=== PATIENT | male | born 1955 | race Caucasian/White ===

== ENCOUNTER 2016-05-09 13:21 | Observation (INO) | payer OTHER ==
[~2016-05-09] VITALS: Ht 172.7 cm; Wt 77.4 kg
[~2016-05-09 13:21] MED LIST: ASPI81TA28 PO
[2016-05-09] MEDS ORDERED: GLC500 PO (14:06)
[2016-05-09] MEDS ORDERED: LISI-461 PO (14:06)
[2016-05-09] MEDS ORDERED: ATOR-26 PO (14:06)
[2016-05-09] MEDS ORDERED: GLIM1TAB2 PO (14:06)
[2016-05-09] MEDS ORDERED: SODIUM CHLORIDE 0.9% 1000ML 1,000 ML IV STA (14:40)
[2016-05-09 14:53] LABS: BASO % 0.1 %; BASO ABS # 0.01 K/uL (0-0.2); COMPLETE YES; EOS % 0.4 %; HEMATOCRIT 43.2 % (42-52); IG% 0.4 %; LYMPH % 25.1 %; MEAN CELL VOLUME 92.9 fL (80-100); MEAN CORPUSCULAR HGB CONC 34.5 g/dl (32-36); MONO % 7.7 %; NEUT % 66.3 %; PLATELET COUNT 148 K/uL (130-400); RED BLOOD COUNT 4.65 M/uL (4.7-6.1); WHITE BLOOD COUNT 7.58 K/uL (4.8-10.8)
--- NOTE | 2016-05-09 14:58 | DIAGNOSTIC IMAGING REPORT ---
CHEST ONE VIEW PORTABLE HISTORY: syncope COMPARISON: None. FINDINGS: The lungs are clear. Cardiac silhouette is normal in size. No pleural effusions. No pneumothorax. IMPRESSION: No acute process. Electronically signed by: Shawn Howard M.D. 05/09/2016 2:57 PM Dictated Date/Time: 05/09/2016 2:56 PM
[2016-05-09 15:00] LABS: ALT/SGPT 19 U/L (12-78); BLOOD UREA NITROGEN 24 mg/dl (7-18); BUN/CREATININE RATIO 10.9 (10-20); CALCIUM 9.1 mg/dl (8.5-10.1); CARBON DIOXIDE 23 mmol/L (21-32); CHLORIDE 105 mmol/L (98-107); GLUCOSE 289 mg/dl (70-99); SODIUM 139 mmol/L (136-145)
[2016-05-09 15:11] LABS: ALB/GLOB RATIO 1.2 (0.9-2); ALKALINE PHOSPHATASE 85 U/L (45-117); AST/SGOT 10 U/L (15-37); CKMB/CK RATIO 1.4 (0-3.0)
--- NOTE | 2016-05-09 15:15 | DIAGNOSTIC IMAGING REPORT ---
CT OF THE HEAD WITHOUT CONTRAST CLINICAL HISTORY: Syncope. Fall. COMPARISON STUDY: No previous studies for comparison. CT DOSE: 638.56 mGycm TECHNIQUE: Helical axial images of the head were obtained without IV contrast. Automated exposure control was utilized for the study. FINDINGS: No acute intracranial hemorrhage, midline shift or mass effect is present. Ventricular system is normal. The basilar cisterns are patent. There are no extra-axial collections. Miller-white differentiation is maintained. There are no findings to suggest acute dural sinus thrombosis or acute territorial infarct. Mild periventricular white matter hypodensity suggests small vessel disease. There is bilateral basal ganglia calcification. There is no calvarial fracture. Visualized portions of the sinuses and mastoid air cells are clear. IMPRESSION: 1. No acute intracranial findings. 2. No calvarial fracture. Electronically signed by: Chris Saavedra M.D. 05/09/2016 3:14 PM Dictated Date/Time: 05/09/2016 3:11 PM
[2016-05-09] MEDS ORDERED: ALUMINUM/MAGNESIUM/SIMETH (MAALOX MAX) 30 ML UDC PO PRN (17:15)
[2016-05-09] MEDS ORDERED: ACETAMINOPHEN 325 MG TAB PO PRN (17:15)
[2016-05-09] MEDS ORDERED: POLYETHYLENE (MIRALAX) 17 GM PACK PO PRN (17:15)
[2016-05-09] MEDS ORDERED: MAGNESIUM HYDROXIDE SUSP 30 ML UDC PO PRN (17:15)
[2016-05-09] MEDS ORDERED: ONDANSETRON INJ 2 MG/ML 2 ML VIAL IV PRN (17:15)
--- NOTE | 2016-05-09 17:19 | History and Physical ---
History & Physical Date & Time of Service: May 09, 2016 at 17:14 Chief Complaint: Passed Out, Dizzy And Fell Backward Primary Care Physician: Guanakito Garcia M.D. History of Present Illness Source: patient, spouse Mr. Batista is a 60 y/o male with PMHx of HTN, T2DM, and CAD S/P Catheterization without Stent Placement who presents to the ED due to a syncope episode and collapse. Patient has had syncopal episodes in the past that have been worked up with unremarkable findings. Today he was cleaning at at [employer] when he was sweeping the floor and felt hot and was diaphoretic. This is the last thing he recalls and his her a loud crash and found him. He fell backwards into the wall and was staring off but was alert. recalls that it took roughly 10 minutes for him to return to his baseline mentation and was complaining of feeling hot and lightheaded. denies tonic-clonic movements, loss of bowel/ bladder function, or biting of the tongue. She did noticed speech was rapid and rambling but has since returned to normal. He associated blurring vision and difficulty focusing prior to the event. He did not eat breakfast this morning, however did take his Glimepiride. He does not regularly check his sugars and is unable to give an average of how his sugars run in the AM. Associated poor sleep over the past several months and stress. States his mind races and this makes it difficult to sleep. He has had a holter monitor placed after previous admission that did not reveal abnormalities. He was seen by Dr. Villa in [place] and had a catheterization that revealed a 100% blockage and a 98% blockage of unknown arteries per patient report. No stent was placed and he was told he has a collateral vessel and that his vessels were too small for stenting. He was started on medical management for those findings. He denies fever/chills, CP, palpitations, SOB, abdominal pain, N/V, dysuria, constipation/ diarrhea. Past Medical/Surgical History Medical Problems: (1) Diab Oma Wo Compl, Type Ii Or Unspec Type, Not Uncntrld Status: Chronic (2) Hyperlipidemia Nec/Nos Status: Chronic (3) Hypertension Nos Status: Chronic (4) Syncope Status: Resolved Family History CABG FATHER Hypotension SISTER Social History Smoking Status: Former Smoker Smokeless Tobacco Use: Yes Alcohol Use: none Drug Use: none Marital Status: Housing status: lives with significant other Allergies Coded Allergies: Flu Virus Vaccine (Verified Adverse Reaction, Severe, Severe vomiting/ dehydration, 05/09/16) Pt reports severe vomiting w/ dehydration to the point of being hospitalized after last flu vaccine. Home Medications Scheduled Aspirin (Aspirin Ec), 1 TAB PO DAILY Atorvastatin (Lipitor), 80 MG PO DAILY Glimepiride (Glimepiride), 1 MG PO DAILY Insulin Aspart (Novolog Flexpen), 0 UNITS SC ACHS Lisinopril (Lisinopril), 10 MG PO DAILY Metformin HCl (Metformin HCl), 500 MG PO QDD Review of Systems Constitutional: + fatigue, + sweats Eyes: + problem reported (Denies headache/pain), + worsening of vision ( blurred vision (resolved)) ENT: No nasal symptoms, No sore throat, No trouble swallowing Respiratory: No cough, No shortness of breath Cardiovascular: No chest pain, No palpitations Abdomen: No constipation, No diarrhea, No nausea, No pain, No vomiting Musculoskeletal: No calf pain, No swelling Genitourinary - Male: No dysuria Neurologic: + vertigo Psychiatric: + insomnia Hematologic / Lymphatic: No abnormal bleeding/bruising, No clotting problems Integumentary: No rash Physical Exam Vital Signs Date Time Temp Pulse Resp B/P Pulse Ox O2 Delivery O2 Flow Rate FiO2 05/09/16 15:21 110 16 87/71 99 Room Air 05/09/16 15:17 82 16 125/69 99 Room Air 88 106/70 110 87/71 05/09/16 13:46 86 05/09/16 13:23 36.8 99 18 94/65 99 Room Air General Appearance: WD/WN, no apparent distress Head: normocephalic, atraumatic Eyes: PERRL, EOMI, sclerae normal ENT: hearing grossly normal, pharynx normal Neck: supple, no JVD, trachea midline Respiratory/Chest: lungs clear, normal breath sounds, no respiratory distress, no accessory muscle use Cardiovascular: regular rate, rhythm, no gallop, no murmur Abdomen/GI: normal bowel sounds, non tender, soft Back: normal inspection, no CVA tenderness Extremities/Musculoskelatal: no calf tenderness, no pedal edema Neurologic/Psych: no motor/sensory deficits, alert, oriented x 3 Skin: normal color, warm/dry Diagnostics Laboratory Results Results Past 24 Hours Test 05/09/16 13:40 Range/Units White Blood Count 7.58 4.8-10.8 K/uL Red Blood Count 4.65 4.7-6.1 M/uL Hemoglobin 14.9 14.0-18.0 g/dL Hematocrit 43.2 42-52 % Mean Corpuscular Volume 92.9 80-100 fL Mean Corpuscular Hemoglobin 32.0 25-34 pg Mean Corpuscular Hemoglobin Concent 34.5 32-36 g/dl Platelet Count 148 130-400 K/uL Mean Platelet Volume 11.0 7.4-10.4 fL Neutrophils (%) (Auto) 66.3 % Lymphocytes (%) (Auto) 25.1 % Monocytes (%) (Auto) 7.7 % Eosinophils (%) (Auto) 0.4 % Basophils (%) (Auto) 0.1 % Neutrophils # (Auto) 5.03 1.4-6.5 K/uL Lymphocytes # (Auto) 1.90 1.2-3.4 K/uL Monocytes # (Auto) 0.58 0.11-0.59 K/uL Eosinophils # (Auto) 0.03 0-0.5 K/uL Basophils # (Auto) 0.01 0-0.2 K/uL RDW Standard Deviation 43.8 36.4-46.3 fL RDW Coefficient of Variation 12.9 11.5-14.5 % Immature Granulocyte % (Auto) 0.4 % Immature Granulocyte # (Auto) 0.03 0.00-0.02 K/uL Sodium Level 139 136-145 mmol/L Potassium Level 5.0 3.5-5.1 mmol/L Chloride Level 105 98-107 mmol/L Carbon Dioxide Level 23 21-32 mmol/L Anion Gap 11.0 3-11 mmol/L Blood Urea Nitrogen 24 7-18 mg/dl Creatinine 2.20 0.60-1.40 mg/dl Est Creatinine Clear Calc Drug Dose 33.7 ml/min Estimated GFR () 35.9 Estimated GFR (Non- 31.0 BUN/Creatinine Ratio 10.9 10-20 Random Glucose 289 70-99 mg/dl Calcium Level 9.1 8.5-10.1 mg/dl Total Bilirubin 0.5 0.2-1 mg/dl Aspartate Amino Transf (AST/SGOT) 10 15-37 U/L Alanine Aminotransferase (ALT/SGPT) 19 12-78 U/L Alkaline Phosphatase 85 45-117 U/L Total Creatine Kinase 66 39-308 U/L Creatine Kinase MB 0.9 0.5-3.6 ng/ml Creatine Kinase MB Ratio 1.4 0-3.0 Troponin I < 0.015 0-0.045 ng/ml Total Protein 7.2 6.4-8.2 gm/dl Albumin 3.9 3.4-5.0 gm/dl Globulin 3.3 2.5-4.0 gm/dl Albumin/Globulin Ratio 1.2 0.9-2 Thyroid Stimulating Hormone (TSH) 2.820 0.300-4.500 uIu/ml Diagnostic Radiology CT OF THE HEAD WITHOUT CONTRAST CLINICAL HISTORY: Syncope. Fall. COMPARISON STUDY: No previous studies for comparison. CT DOSE: 638.56 mGycm TECHNIQUE: Helical axial images of the head were obtained without IV contrast. Automated exposure control was utilized for the study. FINDINGS: No acute intracranial hemorrhage, midline shift or mass effect is present. Ventricular system is normal. The basilar cisterns are patent. There are no extra-axial collections. Miller-white differentiation is maintained. There are no findings to suggest acute dural sinus thrombosis or acute territorial infarct. Mild periventricular white matter hypodensity suggests small vessel disease. There is bilateral basal ganglia calcification. There is no calvarial fracture. Visualized portions of the sinuses and mastoid air cells are clear. IMPRESSION: 1. No acute intracranial findings. 2. No calvarial fracture. CHEST ONE VIEW PORTABLE HISTORY: syncope COMPARISON: None. FINDINGS: The lungs are clear. Cardiac silhouette is normal in size. No pleural effusions. No pneumothorax. IMPRESSION: No acute process. EKG Normal sinus rhythm Normal ECG No previous ECGs available other (LVH) Impression Assessment and Plan Mr. Batista is a 60 y/o male with PMHx of HTN, T2DM, and CAD S/P Catheterization without Stent Placement who presents to the ED due to a syncope episode and collapse. Likely Vasovagal/Orthostasis vs Dehydration with Hyperglycemia vs Arrhythmia (unlikely) vs Seizure (unlikely) vs CVA/TIA (unlikely) Syncope and Collapse: - Patient presents with glucose of 289 without food intake today and after Glimepiride dosage - Patient also with positive orthostatic readings of 125/69 (82) supine; 106/70 (88) sitting; 87/71 (110) - Imaging and Studies -- Echo (2014) - grade I diastolic dysfunction; EF 65% -- Carotid U/S (2014) - mild stenosis of R external carotid and mild calcified plaque within bilateral carotid bifurcations without hemodynamic instability - Will defer further brain imaging given lack of neuro deficits - consideration if mentation changes or deficits appreciated - Repeat Echo and Carotid U/S - Orthostatic BPs - Serial cardiac enzymes - Hold Lisinopril Acute Kidney Injury: Baseline 1.1? - Creatinine at 2.2 - NSS at 100 mL/hr - Trend BMP for resolution R Shoulder Pain 2/ Fall: - R Shoulder XR - Tylenol PRN T2DM: - Check A1c - Hold Metformin and Glimepiride - SSI with goal 100-150 and correction factor 35 CAD with Significant Unknown Vessel Occlusion: - Lipitor 80 mg daily and ASA 81 mg daily DVT Prophylaxis: - TEDs/SCDs Code Status: - FULL RESUSCITATION Disposition: - Patient lives at home with no needs identified Level of Care Telemetry Resuscitation Status FULL RESUSCITATION VTE Prophylaxis VTE Risk Assessment Done? Y/N: Yes Risk Level: Moderate Given or contraindicated: T.E.D. Stockings, SCD's Social Service Consult None Apply Assessment and Plan Attending Addendum: I have physically seen and examined this patient, have directed their medical care, have supervised the PA's activity, and agree with the H&P as noted above, with the following changes: NONE. The patient is awake, well-developed and adequately nourished, alert and oriented 3, normocephalic and atraumatic, lying in bed and in no acute distress. HEENT--PERRL, EOMI, mucous membranes and oropharynx moist. Neck--supple, no JVD or bruits, thyroid normal, trachea midline, no adenopathy. Heart--normal S1 and S2, no extra beats, no murmurs, rubs or gallops. Lungs--clear bilaterally with good air movement, no respiratory distress, no accessory muscle use. Abdomen--normal bowel sounds and soft, nontender and nondistended, no hernias or masses, no organomegaly. Extremities--no cyanosis, clubbing or edema. There are good distal pulses b/l. Dermatologic--normal skin turgor, normal color, warm and dry, no abnormal lymph nodes, no rash. Neurologic--cranial nerves II through XII grossly intact, motor and sensory examination normal. Rheumatologic--normal range of motion, nontender, muscles and joints. Psychiatric--normal affect. Assessment and Plan: Syncope And Collapse--differential includes cardiac, neurologic, dehydration, hypoglycemia, acidosis secondary to metformin in acute Renal failure. CAD/hypertension--continue aspirin 81 mg by mouth daily, hold lisinopril as noted below. We'll follow serial cardiac enzymes, cardiac rhythm monitoring and order a 2-D echocardiogram with Dopplers. Acute renal insufficiency--creatinine at baseline is 1.1, and laboratories upon entry 2.2. Be placed on normal saline 100 ML's per hour, have his lisinopril held, and recheck a PRP and magnesium levels in the a.m.. Vital signs suggest orthostasis, and follow response to rehydration. Diabetes mellitus--hold metformin due to metabolic acidosis associated creatinine by 1.4. Hold glimepiride acutely in this age group. Place on Accu- Cheks before meals and at bedtime with NovoLog.
[2016-05-09 17:42] VITALS: BP 118/76; PULSE 92; TEMP 36.8; O2SAT 96; BMI 25.6; BMI 25.7
[2016-05-09] MEDS ORDERED: DEXTROSE 50% 50 ML SYR IV PRN (18:00)
[2016-05-09] MEDS ORDERED: IV FLUIDS COMPLETED PRN (18:00)
[2016-05-09] MEDS ORDERED: GLUCOSE 10 TABS/TUBE PO PRN (18:00)
[2016-05-09] MEDS ORDERED: GLUCOSE 40% GEL 15 GM TUBE PO PRN (18:00)
[2016-05-09] MEDS ORDERED: GLUCAGON FOR INJ 1 MG VIAL SQ PRN (18:00)
--- NOTE | 2016-05-09 18:36 | DIAGNOSTIC IMAGING REPORT ---
RIGHT SHOULDER MIN 2 VIEWS ROUTINE CLINICAL HISTORY: Syncope and Collapse Right pain COMPARISON: None. DISCUSSION: The bones and joint spaces appear intact. There is no evidence of fracture, dislocation or bony disease. There is no evidence for soft tissue swelling. IMPRESSION: Mild degenerative change. No acute bony abnormality. Electronically signed by: Cruz De La Garza M.D. 05/09/2016 6:34 PM Dictated Date/Time: 05/09/2016 6:34 PM
[2016-05-09] MEDS: SODIUM CHLORIDE 0.9% 1000ML 1,000 ML IV SCH (20:08)
--- NOTE | 2016-05-09 20:30 | EMERGENCY ROOM VISIT NOTE ---
History First contact with patient: 14:10 Chief Complaint: SYNCOPE (NEAR SYNCOPE) Stated Complaint: PASSED OUT, DIZZY AND FELL BACKWARD Nursing Triage Summary: Pt states he has these episodes where he stares off. Has been going on for about a year, has had tests done and everything is unremarkable. History of Present Illness Patient is a 60-year-old white male with past medical history significant for diabetes, hypertension and dyslipidemia who presents the emergency department accompanied by his for evaluation of a syncopal episode that occurred just prior to arrival. Patient was cleaning a townhouse, reportedly was dusting the floor when he began to feel hot and sweaty. His heard a loud crash, and looked up the steps and found him. He had fallen backwards into a wall. He was "staring off," did not lose complete consciousness, but was definitely not alert for roughly 10 minutes. The she states that when he came to he complained of feeling hot and dizzy. She noted that his speech was rambling slightly after the incident. He gradually cleared. At the present time the patient feels fatigued. He admits that he has had poor sleep quality for the last several months. He states that his mind races and he is unable to shut it down to sleep. He has not discussed this with his PCP. The patient reports that he took his glimepiride this morning and did not eat breakfast. He did not check his blood sugar. He denies any associated chest pain or palpitations either prior to or after the syncopal episode. He denies any headache or injuries related to the fall. The patient had a similar episode last summer which occurred while he was mowing the yard. He was also admitted here in 2014 for evaluation of syncope and workup was unremarkable at that time. Review of Systems Review of systems as per HPI. All other systems reviewed were negative. 10 systems reviewed. Past Medical/Surgical History Medical Problems: (1) Diab Oma Wo Compl, Type Ii Or Unspec Type, Not Uncntrld (2) Hyperlipidemia Nec/Nos (3) Hypertension Nos (4) Syncope Electronic medical records are reviewed and summarized as above/below. See Problem List. Social History Smoking Status: Former Smoker Marital Status: Housing Status: lives with family Occupation Status: retired Current/Historical Medications Scheduled Aspirin (Aspirin Ec), 1 TAB PO DAILY Atorvastatin (Lipitor), 80 MG PO DAILY Glimepiride (Glimepiride), 1 MG PO DAILY Lisinopril (Lisinopril), 10 MG PO DAILY Metformin HCl (Metformin HCl), 500 MG PO QDD Allergies Coded Allergies: Flu Virus Vaccine (Verified Adverse Reaction, Severe, Severe vomiting/ dehydration, 05/09/16) Pt reports severe vomiting w/ dehydration to the point of being hospitalized after last flu vaccine. Physical Exam Vital Signs Date Time Temp Pulse Resp B/P Pulse Ox O2 Delivery O2 Flow Rate FiO2 05/09/16 15:21 110 16 87/71 99 Room Air 05/09/16 15:17 82 16 125/69 99 Room Air 88 106/70 110 87/71 05/09/16 13:46 86 05/09/16 13:23 36.8 99 18 94/65 99 Room Air Physical Exam CONSTITUTIONAL: Patient is a pleasant, well-appearing 60-year-old white male who is awake and alert and in no acute distress. EYES: Pupils equal, round, reactive to light and accommodation. EOMs intact without nystagmus. Sclera are anicteric. ENT: Tympanic membranes intact, with normal landmarks. External canals are clear. Oral and nasopharynx are clear. Mucous membranes are moist, no lesions , tongue and gums appear normal. NECK: No bruits auscultated. Supple without lymphadenopathy. No thyromegaly. No meningeal signs. Full active range of motion without discomfort. CARDIOVASCULAR: Regular rate and rhythm, with normal S1 and S2, no murmur or gallop or rub is heard. No carotid bruits auscultated. No JVD. Peripheral pulses easy to palpable. RESPIRATORY: Breath sounds equal and clear to auscultation without wheezes, rales, or rhonchi heard. Full and equal chest expansion without accessory muscle use or retractions. GI: Bowel sounds are present. Abdomen is soft, nontender, nondistended. No organomegaly. No pulsatile masses. No guarding or rebound. MUSCULOSKELETAL: Full range of motion of extremities x 4 with good strength. No cyanosis, edema, joint tenderness or swelling. No deformity. INTEGUMENTARY: No lesions or rash, normal skin turgor. NEUROLOGICAL: Alert, oriented, and cooperative. Cranial nerves, sensation and strength grossly intact. Pupils round, equal, and react to light, EOMs are full. LYMPH: No lymphadenopathy. Medical Decision & Procedures ER Provider Diagnostic Interpretation: CHEST ONE VIEW PORTABLE HISTORY: syncope COMPARISON: None. FINDINGS: The lungs are clear. Cardiac silhouette is normal in size. No pleural effusions. No pneumothorax. IMPRESSION: No acute process. CT OF THE HEAD WITHOUT CONTRAST CLINICAL HISTORY: Syncope. Fall. COMPARISON STUDY: No previous studies for comparison. CT DOSE: 638.56 mGycm TECHNIQUE: Helical axial images of the head were obtained without IV contrast. Automated exposure control was utilized for the study. FINDINGS: No acute intracranial hemorrhage, midline shift or mass effect is present. Ventricular system is normal. The basilar cisterns are patent. There are no extra-axial collections. Miller-white differentiation is maintained. There are no findings to suggest acute dural sinus thrombosis or acute territorial infarct. Mild periventricular white matter hypodensity suggests small vessel disease. There is bilateral basal ganglia calcification. There is no calvarial fracture. Visualized portions of the sinuses and mastoid air cells are clear. IMPRESSION: 1. No acute intracranial findings. 2. No calvarial fracture. Laboratory Results 05/09/16 13:40 Red Blood Count 4.65, Mean Corpuscular Volume 92.9, Mean Corpuscular Hemoglobin 32.0, Mean Corpuscular Hemoglobin Concent 34.5, Mean Platelet Volume 11.0, Neutrophils (%) (Auto) 66.3, Lymphocytes (%) (Auto) 25.1, Monocytes (%) (Auto) 7.7, Eosinophils (%) (Auto) 0.4, Basophils (%) (Auto) 0.1, Neutrophils # (Auto) 5.03, Lymphocytes # (Auto) 1.90, Monocytes # (Auto) 0.58, Eosinophils # (Auto) 0.03, Basophils # (Auto) 0.01 05/09/16 13:40 Test 05/09/16 13:40 White Blood Count 7.58 K/uL (4.8-10.8) Red Blood Count 4.65 M/uL (4.7-6.1) Hemoglobin 14.9 g/dL (14.0-18.0) Hematocrit 43.2 % (42-52) Mean Corpuscular Volume 92.9 fL (80-100) Mean Corpuscular Hemoglobin 32.0 pg (25-34) Mean Corpuscular Hemoglobin Concent 34.5 g/dl (32-36) Platelet Count 148 K/uL (130-400) Mean Platelet Volume 11.0 fL (7.4-10.4) Neutrophils (%) (Auto) 66.3 % Lymphocytes (%) (Auto) 25.1 % Monocytes (%) (Auto) 7.7 % Eosinophils (%) (Auto) 0.4 % Basophils (%) (Auto) 0.1 % Neutrophils # (Auto) 5.03 K/uL (1.4-6.5) Lymphocytes # (Auto) 1.90 K/uL (1.2-3.4) Monocytes # (Auto) 0.58 K/uL (0.11-0.59) Eosinophils # (Auto) 0.03 K/uL (0-0.5) Basophils # (Auto) 0.01 K/uL (0-0.2) RDW Standard Deviation 43.8 fL (36.4-46.3) RDW Coefficient of Variation 12.9 % (11.5-14.5) Immature Granulocyte % (Auto) 0.4 % Immature Granulocyte # (Auto) 0.03 K/uL (0.00-0.02) Anion Gap 11.0 mmol/L (3-11) Est Creatinine Clear Calc Drug Dose 33.7 ml/min Estimated GFR () 35.9 Estimated GFR (Non- 31.0 BUN/Creatinine Ratio 10.9 (10-20) Calcium Level 9.1 mg/dl (8.5-10.1) Total Bilirubin 0.5 mg/dl (0.2-1) Aspartate Amino Transf (AST/SGOT) 10 U/L (15-37) Alanine Aminotransferase (ALT/SGPT) 19 U/L (12-78) Alkaline Phosphatase 85 U/L (45-117) Total Protein 7.2 gm/dl (6.4-8.2) Albumin 3.9 gm/dl (3.4-5.0) Globulin 3.3 gm/dl (2.5-4.0) Albumin/Globulin Ratio 1.2 (0.9-2) Thyroid Stimulating Hormone (TSH) 2.820 uIu/ml (0.300-4.500) Hepatitis C Antibody Screen NEG (NEG) Medications Administered Medications (Trade) Dose Ordered Sig/Boy Route Start Time Stop Time Status Last Admin Dose Admin Sodium Chloride 1,000 ml @ 999 mls/hr Q1H1M STAT IV 05/09/16 14:40 05/09/16 15:40 DC 05/09/16 15:16 999 MLS/HR Sodium Chloride (Nss 1000ml) 1,000 ml @ 100 mls/hr Q10H IV 05/09/16 17:02 06/08/16 17:01 05/09/16 20:08 100 MLS/HR ECG Indication: syncope Rate (beats per minute): 86 Rhythm: normal sinus Findings: no acute ischemic change, no ectopy Change: no significant change ED Course The patient was seen and assessed as above. His old records were reviewed, including his prior admission for syncopal workup. IV access was obtained. He is placed on the quality assurance monitor body and EKG was performed. He was initially noted to be hypotensive in triage, this had improved upon exam and upon resting supine on the gurney. The patient was noted to be orthostatic and symptomatic with orthostatic vitals. He was hydrated with normal saline solution. Laboratory studies including urine dip, CBC with differential, TSH, cardiac enzymes and CMP were collected. Stat portable chest x-ray was obtained and was unremarkable. Head CT did not demonstrate acute cranial bleed, fracture or infarct. Urine dip was unremarkable. Laboratory studies revealed a normal white count at 7500, H&H 14 and 43, electrolytes were within normal limits. BUN and creatinine increased from baseline at 24 and 2.2 respectively. Patient's old records demonstrate previously that he has had normal renal function. Liver functions are not elevated. Cardiac enzymes are negative 1. TSH is indicative of a euthyroid state. All laboratory and diagnostic imaging studies were reviewed with attending physician. The he has had several episodes of syncope in the past, last was in February 2015. Upon evaluation here, he is noted to be orthostatic and has an acute kidney injury with elevated creatinine. Differential includes acute coronary syndrome, arrhythmia, orthostasis, dehydration, electrolyte abnormalities, anemia, hypoglycemia, CVA/TIA, seizure, syncope, among others. Given his age and comorbidities, it was felt that he would benefit from further care and evaluation in the hospital. 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 Medical Decision See ED course. Impression Primary Impression: Syncope Additional Impression: Orthostatic hypotension Departure Information Referrals Guanakito Garcia M.D. (PCP) Patient Instructions [facility] Problem Qualifiers Primary Impression: Syncope
[2016-05-09] MEDS: INSULIN ASPART 100 UNITS/ML 3 ML PEN SC SCH (20:42)
[2016-05-09 20:45] LABS: CKMB/CK RATIO 1.3 (0-3.0)
[2016-05-09] MEDS ORDERED: INSULIN ASPART 100 UNITS/ML 3 ML PEN SC ONE (22:30)
[2016-05-10] VITALS (8 sets, daily range): BP systolic 107–156; BP diastolic 65–91; PULSE 68–101; TEMP 36.7–37; O2SAT 95–96; Ht 172.7 cm; Wt 77.4 kg
[2016-05-10] MEDS ORDERED: INSULIN HUMAN REGULAR PER UNIT 10 UNITS in SYRINGE 9.9 ML IV ONE (00:30)
[2016-05-10] MEDS: INSULIN ASPART 100 UNITS/ML 3 ML PEN SC SCH ×4 (00:31→12:31)
[2016-05-10 02:25] LABS: HEMATOCRIT 39.6 % (42-52); MEAN CELL VOLUME 94.7 fL (80-100); MEAN CORPUSCULAR HEMOGLOBIN 32.3 pg (25-34); MEAN CORPUSCULAR HGB CONC 34.1 g/dl (32-36); MEAN PLATELET VOLUME 10.7 fL (7.4-10.4); PLATELET COUNT 124 K/uL (130-400); RED BLOOD COUNT 4.18 M/uL (4.7-6.1)
[2016-05-10] MEDS: SODIUM CHLORIDE 0.9% 1000ML 1,000 ML IV SCH ×2 (02:55→12:31)
[2016-05-10 02:56] LABS: BUN/CREATININE RATIO 15.7 (10-20); CALCIUM 8.4 mg/dl (8.5-10.1); CKMB/CK RATIO 2.4 (0-3.0); CREATININE 1.7 mg/dl (0.60-1.40); POTASSIUM 4.1 mmol/L (3.5-5.1)
--- NOTE | 2016-05-10 03:19 | Progress Note ---
Progress Note I was paged at approximately 20:35. Patient was noted to be hyperglycemic with blood sugars of 422 and a recheck of 389. SUBJECTIVE: Patient had informed nurse that he had missed his home medication that morning. OBJECTIVE: Patient was not examined at the bedside. Nursing notes patient was comfortable hemodynamic stable. Home medication list reviewed: patient takes metformin 500 mg daily ASSESSMENT/PLAN: - Requested nurse administer according to patient sliding scale: 8 units administered subcutaneously - Discussed case with pharmacy, will hold off on IV bolus insulin until repeat blood sugars checked Placed orders for 00:00 and 04:00 Accu-Cheks Tightened correction factor to 30 -------- 22:15 - Repeat blood sugar 379: Aspart to administer according to sliding scale, 7 units ------- 23:50 - Repeat blood sugar 365 Requested the nurse administer, 8 units NovoLog according to patient sliding scale, 10 units of regular insulin IV ordered Awaiting 04:00 check -------- 04:07 - Repeat BSG 77; notifed that troponin increased to 0.167 - Patient asymptomatic, doing well well - Nurse to give patient snack to bring BSG up. - Regarding troponin, patient has JASON, so slight increase may be secondary to poor clearance. - Overnight events to be signed out to incoming daytime hospitalist
[2016-05-10 06:16] LABS: ESTIMATED AVERAGE GLUCOSE 252 mg/dl; HA1C FLAG Normal (Normal)
--- NOTE | 2016-05-10 07:51 | DIAGNOSTIC IMAGING REPORT ---
BILATERAL CAROTID DOPPLER STUDY HISTORY: Syncope COMPARISON: Carotid Doppler 10/28/2014. TECHNIQUE: Real-time, grayscale, and color Doppler sonography of the carotid arteries was performed. Imaging reviewed in the transverse and longitudinal planes. All measurements were calculated based on NASCET criteria. FINDINGS: Antegrade flow is seen in the bilateral vertebral arteries. The brachial pressures are hemodynamically similar. The right vertebral artery appears hypoplastic in comparison to the left. Mild calcified plaque within the bilateral carotid arteries. The peak systolic velocity within the right ICA is 102 cm/s. The right systolic ratio is 0.9. The peak systolic velocity within the left ICA is 126 cm/s. The left systolic ratio is 1. IMPRESSION: No change compared to the prior study. No hemodynamically significant stenosis seen within the carotid arteries. Electronically signed by: Shawn Howard M.D. 05/10/2016 7:49 AM Dictated Date/Time: 05/10/2016 7:48 AM
[2016-05-10] MEDS ORDERED: ATORVASTATIN 40 MG TAB PO SCH (09:00)
[2016-05-10] MEDS ORDERED: ASPIRIN 81 MG ECTAB PO SCH (09:00)
[2016-05-10] MEDS ORDERED: NVLGIPEN SC (15:43)
--- NOTE | 2016-05-10 15:49 | Discharge Instructions ---
Discharge Instructions Admission Reason for Admission: Syncope Discharge Discharge Diagnosis / Problem: Syncope Discharge Goals Goal(s): Decrease discomfort, Improve function, Increase independence Activity Recommendations Activity Limitations: resume your previous activity . Instructions / Follow-Up Instructions / Follow-Up Follow this sliding scale dosing BG 150-199: 1 unit Bolus Insulin BG 200-249: 3 units Bolus Insulin BG 250-299: 5 units Bolus Insulin BG 300-349: 7 units Bolus Insulin BG Over 350: 8 units Bolus Insulin You should check your blood sugars when you first wake up before taking any medications or food, about an hour after meals, and before you go to bed. You should use the sliding scale about 30 minutes after meals and before you go to bed. You can continue to take your diabetes pills for now, however this may need adjusted in the future You will need to write down all of your blood sugar readings and how much insulin you are taking and take this with you to all appointments in order to determine the best course of treatment. See your primary care doctor in 1-2 weeks and Endocrine in 1-2 weeks Current Hospital Diet Patient's current hospital diet: AHA Diet (Heart Healthy), Diabetes Type 2 Diet Discharge Diet Recommended Diet: Diabetes Type 2 Diet Pending Studies Studies pending at discharge: no Laboratory Results Hemoglobin A1c Test 05/10/16 01:55 Range/Units Estimated Average Glucose 252 mg/dl Hemoglobin A1c 10.4 H 4.5-5.6 % Medical Emergencies . Who to Call and When: Medical Emergencies: If at any time you feel your situation is an emergency, please call 911 immediately. . Non-Emergent Contact Non-Emergency issues call your: Primary Care Provider, [facility] Field Coordinator . . "Provider Documentation" section prepared by Shavonne Pandya. VTE Core Measure Inpt VTE Proph given/why not?: Wilfrid Mcclain, SCD's
--- NOTE | 2016-05-10 15:53 | Discharge Summary ---
Discharge Summary Admission Date: May 09, 2016 at 17:11 Discharge Date: May 10, 2016 Discharge Disposition: Home Principal Diagnosis: Syncope Problems/Secondary Diagnoses: (1) Diab Oma Wo Compl, Type Ii Or Unspec Type, Not Uncntrld Status: Chronic (2) Hyperlipidemia Nec/Nos Status: Chronic (3) Hypertension Nos Status: Chronic CAD s/p cath without stenting Hx of syncope with neg work-up in 2014 Medication Reconciliation New Medications: Insulin Aspart (Novolog Flexpen) 100 Units/Ml Inj 0 UNITS SC ACHS for 30 Days Continued Medications: Aspirin (Aspirin Ec) 81 Mg Tab 1 TAB PO DAILY, #30 Atorvastatin (Lipitor) 80 Mg Tab 80 MG PO DAILY, #30 Glimepiride (Glimepiride) 1 Mg Tab 1 MG PO DAILY, #90 Lisinopril (Lisinopril) 10 Mg Tab 10 MG PO DAILY, #90 Metformin HCl (Metformin HCl) 500 Mg Tab 500 MG PO QDD, #90 Discharge Exam Pt is feeling at his usual. No further syncope. Ate without issue. States he checks his FBS about 1x/week and it is usually in the 160s-170s. Pt denies fever, SOB, chest pain, abd pain, n/v/c/d, LE pain or swelling. ROS as noted above, otherwise neg. Physical Exam: General Appearance: WD/WN, no apparent distress Respiratory/Chest: normal breath sounds, no respiratory distress Cardiovascular: regular rate, rhythm, no edema Abdomen / GI: non tender, soft Extremities: no calf tenderness, no pedal edema Neurologic/Psychiatric: alert, normal mood/affect Skin: normal color, warm/dry Hospital Course Mr. Batista is a 60 y/o male with PMHx of HTN, T2DM, and CAD S/P Catheterization without Stent Placement who presented to the ED due to a syncope episode and collapse. Patient has had syncopal episodes in the past that have been worked up with unremarkable findings. On 05/09 he was cleaning at a townhouse when he was sweeping the floor and felt hot and was diaphoretic. This is the last thing he recalls and his her a loud crash and found him. He fell backwards into the wall and was staring off but was alert. recalls that it took roughly 10 minutes for him to return to his baseline mentation and was complaining of feeling hot and lightheaded. denies tonic-clonic movements, loss of bowel/ bladder function, or biting of the tongue. She did noticed speech was rapid and rambling but has since returned to normal. He associated blurring vision and difficulty focusing prior to the event. He did not eat breakfast that morning, however did take his Glimepiride. Associated poor sleep over the past several months and stress. States his mind races and this makes it difficult to sleep. He has had a holter monitor placed after previous admission that did not reveal abnormalities. He was seen by Dr. Villa in [place] and had a catheterization that revealed a 100% blockage and a 98% blockage of unknown arteries per patient report. No stent was placed and he was told he has a collateral vessel and that his vessels were too small for stenting. He was started on medical management for those findings. He denies fever/chills, CP, palpitations, SOB, abdominal pain, N/V, dysuria, constipation/diarrhea. Mr. Batista is a 60 y/o male with PMHx of HTN, T2DM, and CAD S/P Catheterization without Stent Placement who presents to the ED due to a syncope episode and collapse. Syncope and Collapse: - Patient presents with glucose of 289 on arrival to the ED without food intake today and after Glimepiride dosage -possibly pt had hypoglycemia related to this and once he had syncopal episode, he had rebound hyperglycemia to compensate causing elevated BS in the ED - Patient also with positive orthostatic readings of 125/69 (82) supine; 106/70 (88) sitting; 87/71 (110) - Imaging and Studies -- Echo with EF 50-55% and akinesis of septal/inferior regions--unchanged from 2015 ECHO -- Carotid U/S with no change from [address] head WNL - Will defer further brain imaging given lack of neuro deficits - consideration if mentation changes or deficits appreciated - Serial cardiac enzymes with slight elevation in the setting of mildly elevated cr on admission, neg tele monitor Acute Kidney Injury: Baseline approx 1.1 At baseline on d/c, can resume home meds R Shoulder Pain 2/2 Fall: - R Shoulder XR - Tylenol PRN T2DM: A1c elevated at 10.6 Advised initiation of insulin, will start with SSI to determine baseline lantus use Pt to be set up by CM with appt with endocrine in [place] who his children also follow with CAD with Significant Unknown Vessel Occlusion: - Lipitor 80 mg daily and ASA 81 mg daily Total Time Spent: Greater than 30 minutes This includes examination of the patient, discharge planning, medication reconciliation, and communication with other providers. Discharge Instructions Please refer to the electronic Patient Visit Report (Discharge Instructions) for additional information. Follow-Up Dr. Garcia in 1-2 weeks Endocrine in 1-2 weeks Additional Copies To Guanakito Garcia M.D.
[2016-05-10] MEDS ORDERED: [UNRECOGNIZED DRUG - CODE] (17:00)
--- NOTE | 2016-05-10 20:56 | ECHOCARDIOGRAM REPORT ---
*NOTICE TO RECEIVING DEMOCRAT AGENCY This information is strictly Confidential and protected under [place] law. [place] law prohibits you from making any further disclosure of this information unless further disclosure is expressly permitted by the written consent of the person to whom it pertains or is authorized by law. A general authorization for the release of medical or other information is not sufficient for this purpose. Hospital accepts no responsibility if the information is made available to any other person, INCLUDING THE PATIENT. Interpretation Summary * Name: ZURDO LUNA Study Date: 05/10/2016 08:38 AM BP: 141/84 mmHg * Patient Location: [facility] HR: 79 * : 1955 (M/d/yyyy) Gender: Male Height: 67 in * Age: 60 yrs Ethnicity: [place] Weight: 169 lb * Ordering Physician: Darlene Jean Baptiste * Referring Physician: Self, Referred * Performed By: Anastacia Stewart RDCS * * Reason For Study: SYNCOPE * BSA: 1.9 m2 * History: SYNCOPE * -- Conclusions -- * 1. Normal left ventricular size with low-normal systolic function. EF 50-55%. Akinesis of septal base and inferior base. Mild to moderate concentric left ventricular hypertrophy. Type 1 diastolic dysfunction. * 2. There is trace mitral regurgitation. * 3. Compared to prior study on 10/28 09/06, similar findings. Procedure Details * A complete two-dimensional transthoracic echocardiogram was performed (2D, M-mode, Doppler and color flow Doppler). Left Ventricle * Normal left ventricular size with low-normal systolic function. EF 50-55%. Akinesis of septal base and inferior base. Mild to moderate concentric left ventricular hypertrophy. Type 1 diastolic dysfunction. Right Ventricle * The right ventricle is normal in size and function. Atria * The left atrial size is normal. * Right atrial size is normal. * There is no evidence of atrial septal defect, but resolution does not allow assessment for a patent foramen ovale. Mitral Valve * The mitral valve is grossly normal. * There is no mitral valve stenosis. * There is trace mitral regurgitation. Tricuspid Valve * The tricuspid valve is not well visualized, but is grossly normal. * There is no tricuspid stenosis. * There is trace tricuspid regurgitation. Aortic Valve * The aortic valve is normal in structure and function. * The aortic valve is trileaflet. * No hemodynamically significant valvular aortic stenosis. * No aortic regurgitation is present. Pulmonic Valve * The pulmonary valve is inadequately visualized, but the Doppler data is adequate for interpretation. * There is no pulmonic valvular stenosis. * Trace pulmonic valvular regurgitation. Great Vessels * The aortic root is normal size. * Normal pulmonary venous flow pattern. Pericardium/Pleural * There is no pericardial effusion. Great Vessels * Normal inferior vena cava size and collapsability with sniff indicates a normal right atrial pressure of 3 mmHg MMode 2D Measurements and Calculations IVSd 1.4 cm IVSs 1.7 cm LVIDd 4.3 cm LVIDs 3.0 cm LVPWd 1.3 cm LVPWs 1.9 cm IVS/LVPW 1.1 FS 29.8 % EDV(Teich) 84.8 ml ESV(Teich) 36.3 ml EF(Teich) 57.2 % EDV(cubed) 81.6 ml ESV(cubed) 28.2 ml EF(cubed) 65.4 % % IVS thick 20.4 % % LVPW thick 46.9 % LV mass(C)d 223.5 grams LV mass(C)dI 118.8 grams/m\S\2 LV mass(C)s 221.8 grams LV mass(C)sI 117.8 grams/m\S\2 SV(Teich) 48.5 ml SI(Teich) 25.8 ml/m\S\2 SV(cubed) 53.4 ml SI(cubed) 28.4 ml/m\S\2 Ao root diam 3.7 cm Ao root area 10.8 cm\S\2 LA dimension 3.5 cm LA/Ao 0.94 LVAd ap4 38.9 cm\S\2 LVLd ap4 9.3 cm EDV(MOD-sp4) 137.1 ml EDV(sp4-el) 138.0 ml LVAs ap4 26.0 cm\S\2 LVLs ap4 8.1 cm ESV(MOD-sp4) 73.8 ml ESV(sp4-el) 70.9 ml EF(MOD-sp4) 46.2 % EF(sp4-el) 48.7 % LVAd ap2 36.7 cm\S\2 LVLd ap2 9.4 cm EDV(MOD-sp2) 124.4 ml EDV(sp2-el) 121.8 ml LVAs ap2 23.0 cm\S\2 LVLs ap2 8.1 cm ESV(MOD-sp2) 62.2 ml ESV(sp2-el) 55.2 ml EF(MOD-sp2) 50.0 % EF(sp2-el) 54.7 % LVLd %diff 1.3 % EDV(MOD-bp) 130.9 ml LVLs %diff 0.87 % ESV(MOD-bp) 67.7 ml EF(MOD-bp) 48.3 % SV(MOD-sp4) 63.3 ml SI(MOD-sp4) 33.6 ml/m\S\2 SV(MOD-sp2) 62.2 ml SI(MOD-sp2) 33.1 ml/m\S\2 SV(MOD-bp) 63.2 ml SI(MOD-bp) 33.6 ml/m\S\2 SV(sp4-el) 67.2 ml SI(sp4-el) 35.7 ml/m\S\2 SV(sp2-el) 66.6 ml SI(sp2-el) 35.4 ml/m\S\2 Doppler Measurements and Calculations MV E max praveen 39.8 cm/sec MV A max praveen 75.2 cm/sec MV E/A 0.53 MV dec time 0.26 sec Ao V2 max 105.1 cm/sec Ao max PG 4.4 mmHg Ao max PG (full) 2.2 mmHg LV V1 max PG 2.2 mmHg LV V1 max 74.2 cm/sec RAP systole 3.0 mmHg
== END 2016-05-10 17:45 | disposition home or self-care (01) ==
LOC: ENRESERVTM → ENRESERVDT → C.EDB 13:25 → C.MED 17:11
PROVIDERS: ADMIT Hospitalist; ATTEND Family Medicine
DX: R55 Syncope and collapse (principal); I95.1 Orthostatic hypotension; N17.9 Acute kidney failure, unspecified; M25.511 Pain in right shoulder; W19.XXXA Unspecified fall, initial encounter; E11.9 Type 2 diabetes mellitus without complications; I12.9 Hypertensive chronic kidney disease with stage 1 through stage 4 chronic kidney disease, or unspecified chronic kidney disease; E78.5 Hyperlipidemia, unspecified; Z87.891 Personal history of nicotine dependence; Z79.82 Long term (current) use of aspirin; Z79.899 Other long term (current) drug therapy; Z79.4 Long term (current) use of insulin

== ENCOUNTER 2018-11-22 16:47 | Inpatient (IN) ==
[2018-11-22] MEDS ORDERED: SODIUM CHLORIDE 0.9% 500 ML IV SCH (17:30)
[2018-11-22] MEDS ORDERED: SODIUM CHLORIDE 0.9% 1000ML 1,000 ML IV SCH (17:30)
--- NOTE | 2018-11-22 17:44 | XRay Report ---
XR chest 1V portable CLINICAL HISTORY: 63 years-old Male presenting with weakness and fever. TECHNIQUE: Portable upright AP view of the chest was obtained. COMPARISON: 11/18/2018. FINDINGS: Cardiomediastinal silhouette normal. No focal opacity. No large effusion or pneumothorax. Degenerativ e changes of the thoracic spine. Upper abdomen normal. IMPRESSION: 1. No acute cardiopulmonary disease. Electronically signed by: Jaime Anderson M.D. 11/22/2018 5:42 PM
[2018-11-22 18:17] LABS: Basophils # (auto) 0.01 K/uL (0-0.2); Basophils % (auto) 0.2 %; Eosinophils # (auto) 0.01 K/uL (0-0.5); Eosinophils % (auto) 0.2 %; Hematocrit (blood only) 35.3 % (42-52); Hemoglobin 12.1 g/dL (14.0-18.0); Immature Granulocytes # (auto) 0.01 K/uL (0.00-0.02); Immature Granulocytes % (auto) 0.2 %; Lymphocytes # (auto) 1.02 K/uL (1.2-3.4); Lymphocytes % (auto) 15.5 %; Mean Corpuscular Hemoglobin 31.9 pg (25-34); Mean Corpuscular Hgb Conc 34.3 g/dL (32-36); Mean Corpuscular Volume 93.1 fL (80-100); Mean Platelet Volume 10.3 fL (7.4-10.4); Monocytes % (auto) 12.2 %; Neutrophils # (auto) 4.72 K/uL (1.4-6.5); Neutrophils % (auto) 71.7 %; Platelet Count 177 K/uL (130-400); RDW Coefficient of Variation 13.1 % (11.5-14.5); RDW Standard Deviation 44.6 fL (36.4-46.3); Red Blood Count 3.79 M/uL (4.7-6.1); White Blood Count 6.57 K/uL (4.8-10.8)
[2018-11-22 18:38] LABS: Albumin Level 3.2 gm/dl (3.4-5.0); BUN Creatinine Ratio 24.6 (10-20); Calcium 8.4 mg/dl (8.5-10.1); Creatinine Clr Calc Pharmacy 46.1 ml/min; Est GFR (African American) 49.7; Est GFR (Non-African American) 42.9; Magnesium 2.1 mg/dl (1.8-2.4); Potassium 4.9 mmol/L (3.5-5.1)
[2018-11-22 18:42] LABS: Albumin Globulin Ratio 0.8 (0.9-2); Bilirubin,Total 0.5 mg/dl (0.2-1); Total Protein 7.2 gm/dl (6.4-8.2)
[2018-11-22 18:49] LABS: Beta-Hydroxybutyrate 1.06 mg/dl (0.2-2.81); Thyroid Stimulating Hormone 1.55 uIu/ml (0.300-4.500); Troponin I 0.103 ng/ml (0-0.045)
[2018-11-22] MEDS ORDERED: ASPIRIN CHEW 324 MG PO STA (18:56)
[2018-11-22] MEDS ORDERED: PIPERACILL/TAZOBAC CONSULT ACTIVE PRN ×2 (19:20→22:11)
[2018-11-22] MEDS ORDERED: PIPERACILLIN/TAZOBACTAM 4.5 GM/120 ML BAG IV ONE (19:20)
[2018-11-22] MEDS ORDERED: VANCOMYCIN CONSULT ACTIVE PRN ×2 (19:20→22:11)
[2018-11-22] MEDS ORDERED: VANCOMYCIN HCL 2,000 MG in SODIUM CHLORIDE 0.9% 500 ML IV ONE (19:20)
[2018-11-22] MEDS ORDERED: INSULIN HUMAN REGULAR PER UNIT 10 UNITS in SYRINGE 0 ML SC STA (19:21)
[2018-11-22] MEDS ORDERED: NovoLIN-R INSULIN PER UNIT CHARGE ONE (19:35)
--- NOTE | 2018-11-22 21:00 | History & Physical Report ---
Date of Service November 22, 2018 Assessment & Plan (1) Infection of wound hematoma: (2) Cellulitis of leg, right: 63-year-old male with history of diabetes mellitus, hypertension, hyperlipidemia, GERD presents with worsening right lower extremity wound and weakness x 5 days. Right lower extremity wound concern for cellulitis and hematoma Afebrile, tachycardic, no WBC elevation Lactate 2.9 X-ray foot, ankle, tib-fib: No fracture, no emphysema possible abscess and significant soft tissue edema Ultrasound Doppler right lower extremity to rule out DVT Ultrasound ST right lower extremity to rule out abscess Received Vanco and Zosyn in the ED, continued On IV fluids Ortho consulted for possible I&D History of DM 2: Hyperglycemia BSG 319 in the ED Beta hydroxybutyrate 1.06, normal Hold home medications BSG per unit protocol, SSI Elevated troponin No chest pain or shortness of breath Troponin 0.103 EKG sinus tach 104 QTC 460 Monitor on telemetry Trend troponin JASON No history of CKD, previous BUN/creatinine 2014 normal Patient appears hypovolemic and reports not drinking enough water BUN/creatinine 41/1.65 Received 500 cc normal saline +150/h in the ED On IV fluids LR 125 cc/h Continue to monitor BMP History of hypertension, hyperlipidemia Continue home atorvastatin Hold lisinopril in the setting of JASON Patient normotensive at this time PRN antihypertensive as needed FEN/GI: LR at 125 cc/h, n.p.o. for possible procedure Code: Full DVT prophylaxis: Contraindicated the setting of right lower extremity hematoma/bleeding and no SCD either Disposition: Telemetry (3) Hyperglycemia: (4) Elevated troponin: (5) JASON (acute kidney injury): (6) HLD (hyperlipidemia): (7) HTN (hypertension): (8) GERD (gastroesophageal reflux disease): (9) DM2 (diabetes mellitus, type 2): History of Present Illness Chief Complaint: Weakness and right lower extremity wound Primary Care Provider: Barbara Herrera DO 63-year-old male with history of diabetes mellitus, hypertension, hyperlipidemia, GERD presents with worsening right lower extremity wound and weakness x 5 days. Patient reports he was staring down garage door when beam fell and hit right lateral vargas, ankle and foot 2 weeks ago. He went to [facility] where he had x-rays done and was told to elevate and take Tylenol. On Saturday the , 5 days ago he came to [facility] ED after he passed out and hit his right eye on bathtub. He reports at the time he was going upstairs to use the bathroom and felt very clammy and weak and he must of passed out. His eyelid was repaired and he was told to follow-up with wound clinic which is scheduled for Saturday. He returns today due to worsening right lower extremity redness, bleeding and extreme swelling especially when he stands. He also feels weak and clammy every time he walks. Reports blood sugars have also been high was 400 today. He checks blood sugar once a month usually and his recent A1c was 3 months ago and believes it was 7. Found to have tachycardia and elevated lactate in the ED. Was given Vanco and Zosyn for concern of infection as well as IV fluids. He also had a mild bump in his troponin for which she was given aspirin 324 mg x 1. Patient's BUN and creatinine also elevated. Past surgical history: Bilateral rotator cuff repair and bicep tendon repair Social history: Chews tobacco 1 can since age 10, quit smoking 15 to 20 years ago but smoked for about 25 to 30 years half pack per day, very rare alcohol use and denies occasional drug use Family history: Father had bypass and pacemaker at age 65, mother of car accident, 2 children also have diabetes Allergies Allergy/AdvReac Type Severity Reaction Status Date / Time No Known Allergies Allergy Unverified 11/18/18 11:24 Home Medications Home Medications Medication Instructions Recorded Confirmed Type atorvastatin 80 mg PO DAILY #30 05/09/16 11/22/18 History glimepiride 2 mg PO QAM #90 05/09/16 11/22/18 History lisinopril 10 mg PO DAILY #90 05/09/16 11/22/18 History metformin 1,000 mg PO BID #90 05/09/16 11/22/18 History glimepiride 1 mg PO QPM 11/18/18 11/22/18 History linagliptin [Tradjenta] 5 mg PO DAILY 11/18/18 11/22/18 History omeprazole 20 mg PO DAILY 11/18/18 11/22/18 History Past Med/Surg History Medical History Diabetes Syncope Family History Other Family history non-contributory Social History Preferred Language: Romansh Communication Ability: Effective Beliefs That Will Affect Care: None Current Living Situation: Spouse Other Information That Helps Us Care for You: No Feels Safe at Home: Yes Smoking Status: Former smoker Second Hand Exposure: No ; Hx Alcohol Use: Yes Alcohol type: beer Hx Substance Use: No Review of Systems Review of Systems: As per HPI Physical Exam Physical Exam: General: In NAD, pleasant Neuro: A&O x 4 Pulm: CTAB equal breath sounds bilaterally CV: RRR, no m/r/g, cap refill 3 secs Abdomen:+BS, no TTP in all quadrants, non-distended LLE: no LE edema, no calf TTP, 2+ Dp and posterior tibial pulse RLE: lateral vargas region large vertical eschar like region extending from mid calf to ankle which oozes blood on palpation and is TTP, ecchymosis extending from vargas and encircles ankle; vargas, ankle and foot TTP, warmth, significant erythema and edema, ecchymosis on digits, calf is soft, top of foot feels very tense Results & Data Vital Signs (Past 12 Hours) Vital Signs Temp Pulse Pulse Resp BP BP Pulse Ox 11/22/18 19:10 98 11/22/18 19:00 96 H 20 140/72 96 11/22/18 18:03 99 H 18 141/88 H 98 11/22/18 16:55 36.6 C 134 H 20 112/75 97 Laboratory Results Abnormal lab results 11/22/18 11/22/18 11/22/18 Range/Units 17:53 17:53 17:53 RBC 3.79 L (4.7-6.1) M/uL Hgb 12.1 L (14.0-18.0) g/dL Hct 35.3 L (42-52) % Lymph # (Auto) 1.02 L (1.2-3.4) K/uL [facility] # (Auto) 0.80 H (0.11-0.59) K/uL BUN 41 H (7-18) mg/dl Creatinine 1.65 H (0.6-1.4) mg/dl BUN/Creatinine Ratio 24.6 H (10-20) Glucose 319 H* (70-99) mg/dl POC Glucose (70-99) Lactate 2.9 H* (0.4-2.0) mmol/L Calcium 8.4 L (8.5-10.1) mg/dl AST 8 L (15-37) U/L Troponin I 0.103 H* (0-0.045) ng/ml Albumin 3.2 L (3.4-5.0) gm/dl Albumin/Globulin Ratio 0.8 L (0.9-2) 11/22/18 Range/Units 20:22 RBC (4.7-6.1) M/uL Hgb (14.0-18.0) g/dL Hct (42-52) % Lymph # (Auto) (1.2-3.4) K/uL [facility] # (Auto) (0.11-0.59) K/uL BUN (7-18) mg/dl Creatinine (0.6-1.4) mg/dl BUN/Creatinine Ratio (10-20) Glucose (70-99) mg/dl POC Glucose 234 H (70-99) Lactate (0.4-2.0) mmol/L Calcium (8.5-10.1) mg/dl AST (15-37) U/L Troponin I (0-0.045) ng/ml Albumin (3.4-5.0) gm/dl Albumin/Globulin Ratio (0.9-2) Diagnostic Findings XR tibia fibula RT 2V CLINICAL HISTORY: 63 years-old Male presenting with R foot/vargas/ankle wound rule out tissue emphysema. TECHNIQUE: Frontal and lateral views of the right lower leg were obtained. COMPARISON: 11/18/2018. FINDINGS: Extensive lateral subcutaneous edema and skin thickening primarily in the mid to distal lower leg. No radiographic evidence of soft tissue emphysema allowing for the sensitivity of radiography. No subjacent osseous erosion or periosteal reaction. No acute fracture or malalignment. Knee joint and ankle mortise congruent. Atherosclerosis. IMPRESSION: No radiographic evidence of soft tissue emphysema at the site of skin thickening and subcutaneous edema in the mid to distal lateral lower leg. No radiographic evidence of osteomyelitis. XR foot RT min 3V routine CLINICAL HISTORY: 63 years-old Male presenting with R foot/vargas/ankle wound rule out tissue emphysema. TECHNIQUE: Frontal, oblique, and lateral views of the right foot were obtained. COMPARISON: 11/18/2018. FINDINGS: Soft tissue irregularity along the lateral malleolus and lateral aspect of the hindfoot associated with extensive soft tissue swelling and skin thickening. No gross evidence of soft tissue emphysema allowing for the sensitivity of radiography. No acute fracture or malalignment. No osseous erosion or periosteal reaction. Enthesophyte at the origin of plantar fascia. Atherosclerosis. Soft tissue swelling over the dorsum of the forefoot. IMPRESSION: Soft tissue irregularity concerning for ulcer or other wound in the lateral hindfoot with extensive associated soft tissue thickening. This is concerning for cellulitis. Underlying abscess not excluded. No soft tissue emphysema allowing for the sensitivity of radiography. No radiographic evidence of osteomyelitis. XR ankle RT min 3V routine CLINICAL HISTORY: 63 years-old Male presenting with R foot/vargas/ankle wound rule out tissue emphysema. TECHNIQUE: Frontal, mortise, and lateral views of the right ankle were obtained. COMPARISON: 11/18/2018. FINDINGS: Extensive soft tissue swelling over the lateral malleolus. No gross evidence of soft tissue emphysema allowing for the sensitivity of radiography. There is also extensive subcutaneous edema in the lower leg more so laterally. There is no osseous erosion or periosteal reaction. Ankle mortise congruent. Degenerative or posttraumatic related ossicles at the inferior aspect of the medial malleolus. Enthesophyte at the origin of the plantar fascia. No acute fracture or malalignment. Atherosclerosis noted. IMPRESSION: Extensive soft tissue swelling over the lateral malleolus and lateral lower leg without radiographic evidence of osteomyelitis. No radiographic evidence of soft tissue emphysema. XR chest 1V portable CLINICAL HISTORY: 63 years-old Male presenting with weakness and fever. TECHNIQUE: Portable upright AP view of the chest was obtained. COMPARISON: 11/18/2018. FINDINGS: Cardiomediastinal silhouette normal. No focal opacity. No large effusion or pneumothorax. Degenerative changes of the thoracic spine. Upper abdomen normal. IMPRESSION: 1. No acute cardiopulmonary disease. Code Status & VTE Plan Code Status Full VTE Prophylaxis Plan VTE Prophylaxis will be ordered: Yes Supervising Physician Co-Signing Physician Notes Patient seen and examined, chart reviewed, case discussed with Dr. Verduzco I agree with her assessment and plan as documented above. Briefly, patient is a 63-year-old male with history of diabetes, hypertension, hyperlipidemia who sustained an injury to his right lower extremity 2 weeks ago during the home-improvement project. He was renovating his garage when a wooden beam fell and hit his right lateral vargas. Patient was seen in the ER at [facility] and was managed conservatively. He was seen at [facility] on 11/18 after a syncopal episode with mild head trauma. Patient with worsening right lower extremity redness, pain, edema. Difficulty with ambulation. On physical exam he is afebrile, tachycardic, blood pressure within normal range General: Awake alert and oriented, no acute distress Skin: Lateral portion of right vargas with large area of ecchymosis, small blood- filled bulla present on lateral portion of foot, dorsum of foot red, swollen, tender. No crepitus or lymphangitic streaks. Weakly palpable pulse. HEENT: Normocephalic, atraumatic pupils equal round and reactive to light, moist mucous membranes, neck supple Heart: S1-S2 present, regular, tachycardic Lungs: CTA Abdomen: Soft, nontender/nondistended Extremities: As above Labs and images reviewed. Significant for elevated blood glucose of 319, e levated lactate at 2.9, elevated troponin 0 0.343 Ultrasound with subcutaneous collection in lateral lower leg which could represent hematoma versus abscess. No DVT present EKG with sinus tachycardia 104 bpm, normal axis QTC = 460, no evidence of acute ischemia. Assessment/plan: 63-year-old male with history of diabetes presenting with worsening pain and swelling of right lower extremity after traumatic injury. Concern for cellulitis versus hematoma versus abscess formation -Admit to medical floor -Empiric antibiotics with vancomycin and Zosyn -Orthopedic consultation. Appreciate assistance with this case -Trend troponins. Patient with no cardiac complaints, EKG with no evidence of acute ischemia. Most likely elevated in the setting of JASON/dehydration -Monitor renal function -Remainder of plan as above - PG Care Time/CCT Total # of Minutes Spent Total Time Spent with Patient: Total time spent is greater than 50% in coordination of care (as documented) at patient's floor/unit and/or counseling patient: Resident Activity Tracking Resident Involvement: Resident Care Provided Care Provided: Adult [facility]
--- NOTE | 2018-11-22 21:07 | XRay Report ---
XR ankle RT min 3V routine CLINICAL HISTORY: 63 years-old Male presenting with R foot/vargas/ankle wound rule out tissue emphysema . TECHNIQUE: Frontal, mortise, and lateral views of the right ankle were obtained. COMPARISON: 11/18/2018. FINDINGS: Extensive soft tissue swelling over the lateral malleolus. No gross evidence of soft tissue emphysema allowing for the sensitivity of radiography. There is also extensive subcutaneous edema in the lower leg more so laterally. There is no osseous erosion or periosteal reaction. Ankle mortise congruent. Degenerative or posttraumatic related ossicles at the inferior aspect of the medial malleolus. Enthes ophyte at the origin of the plantar fascia. No acute fracture or malalignment. Atherosclerosis noted. IMPRESSION: Extensive soft tissue swelling over the lateral malleolus and lateral lower leg without radiographic evidence of osteomyelitis. No radiographic evidence of soft tissue emphysema. Electronically signed by: Jaime Anderson M.D. 11/22/2018 9:05 PM
--- NOTE | 2018-11-22 21:08 | XRay Report ---
XR tibia fibula RT 2V CLINICAL HISTORY: 63 years-old Male presenting with R foot/vargas/ankle wound rule out tissue emphysema . TECHNIQUE: Frontal and lateral views of the right lower leg were obtained. COMPARISON: 11/18/2018. FINDINGS: Extensive lateral subcutaneous edema and skin thickening primarily in the mid to distal lower leg. No radiographic evidence of soft tissue emphysema allowing for the sensitivity of radiography. No subja cent osseous erosion or periosteal reaction. No acute fracture or malalignment. Knee joint and ankle mortise congruent. Atherosclerosis. IMPRESSION: No radiographic evidence of soft tissue emphysema at the site of skin thickening and subcutaneous adryan ma in the mid to distal lateral lower leg. No radiographic evidence of osteomyelitis. Electronically signed by: Jaime Anderson M.D. 11/22/2018 9:06 PM
--- NOTE | 2018-11-22 21:10 | XRay Report ---
XR foot RT min 3V routine CLINICAL HISTORY: 63 years-old Male presenting with R foot/vargas/ankle wound rule out tissue emphysema . TECHNIQUE: Frontal, oblique, and lateral views of the right foot were obtained. COMPARISON: 11/18/2018. FINDINGS: Soft tissue irregularity along the lateral malleolus and lateral aspect of the hindfoot associated wi th extensive soft tissue swelling and skin thickening. No gross evidence of soft tissue emphysema all owing for the sensitivity of radiography. No acute fracture or malalignment. No osseous erosion or pe riosteal reaction. Enthesophyte at the origin of plantar fascia. Atherosclerosis. Soft tissue swellin g over the dorsum of the forefoot. IMPRESSION: Soft tissue irregularity concerning for ulcer or other wound in the lateral hindfoot with extensive a ssociated soft tissue thickening. This is concerning for cellulitis. Underlying abscess not excluded. No soft tissue emphysema allowing for the sensitivity of radiography. No radiographic evidence of os teomyelitis. Electronically signed by: Jaime Anderson M.D. 11/22/2018 9:08 PM
--- NOTE | 2018-11-22 21:39 | Ultrasound Report ---
US venous doppler LE RT CLINICAL HISTORY: 63 years-old Male presenting with pain and swelling, rule out DVT. TECHNIQUE: Real-time grayscale and color and spectral Doppler ultrasound imaging of the veins of the right lower extremity was performed. Compression and augmentation were also utilized. COMPARISON: None. FINDINGS: RIGHT: Common femoral vein: Patent. Greater saphenous vein (superficial): Patent. Deep femoral vein: Patent. Femoral vein: Patent. Popliteal vein: Patent. Calf veins: Patent. Other: None. IMPRESSION: No evidence of deep venous thrombosis. Electronically signed by: Jaime Anderson M.D. 11/22/2018 9:38 PM
--- NOTE | 2018-11-22 21:43 | Ultrasound Report ---
US extremity non-vascular ltd CLINICAL HISTORY: 63 years-old Male presenting with RLE wound rule out abscess. TECHNIQUE: Real-time grayscale ultrasound imaging of the right lower leg was performed for a focused evaluation at the site of clinical concern. Color Doppler ultrasound imaging was also performed. COMPARISON: None. FINDINGS: At the right distal lower leg along the lateral aspect at the site of clinical concern, there is an e xtensive collection in the subcutaneous tissue measuring 16.2 x 1.5 cm. This is heterogeneously hypoe choic and avascular. Normal subjacent musculature. Along the dorsum of the right foot, extensive subcutaneous edema and dilated lymphatics evident. Asso ciated skin thickening. No hyperemia of this region. No focal collection. Along the lateral aspect of the right ankle, there is an anechoic 2.4 x 0.4 x 3.4 cm collection, whic h is avascular on color Doppler. IMPRESSION: 1. Extensive subcutaneous collection in the lateral lower leg, which could represent hematoma or abs cess. 2. Simple laminar fluid collection in the lateral right ankle. This could represent a seroma or burs itis. 3. Subcutaneous edema along the dorsum of the foot. Electronically signed by: Jaime Anderson M.D. 11/22/2018 9:41 PM
[2018-11-22] MEDS ORDERED: ACETAMINOPHEN 325 MG TAB PO PRN (22:11)
[2018-11-22] MEDS ORDERED: VANCOMYCIN HCL 1,000 MG in SODIUM CHLORIDE 0.9% 250 ML IV SCH (22:11)
[2018-11-22] MEDS ORDERED: POLYETHYLENE (MIRALAX) 17 GM PACK PO PRN (22:11)
[2018-11-22] MEDS ORDERED: CARBOHYDRATES FOR HYPOGLYCEMIA PO PRN (22:45)
[2018-11-22] MEDS ORDERED: GLUCAGON FOR INJ 1 MG VIAL IM PRN (22:45)
[2018-11-22] MEDS ORDERED: DEXTROSE 50% 50 ML SYRINGE IV PRN (22:45)
[2018-11-22] MEDS ORDERED: GLUCOSE 40% GEL 15 GM TUBE PO PRN (22:45)
[2018-11-22] MEDS ORDERED: GLUCOSE 10 TABS/TUBE PO PRN (22:45)
[2018-11-22] MEDS: LACTATED RINGER'S 1,000 ML IV SCH (23:29)
--- NOTE | 2018-11-22 23:46 | Emergency Department Note ---
Entered by Sree Esparza acting as a scribe for History of Present Illness General Chief complaint: Leg Injury/Pain Stated complaint: LEG INJURY, BEAM FELL ON LEG Time Seen by Provider: 11/22/18 17:11 Source: patient Limitations: no limitations History of Present Illness Onset (ago): day(s) (10) Location: right (leg) Pain Consistency: + constant Maximum Pain Intensity: 5 Quality: + constant Associated symptoms: + other (limp, clammy, ); no syncope The patient is a 63 year old male who presents to the Emergency Room with complaints of constant right leg pain coming from an injury occurring 10 days ago. The patient states he was tearing off the roof of his garage when the center beam fell on his leg. He notes he went to [facility] to get the wound checked and they referred him to [facility]. He states he was not admitted at the time. He notes he passed out 3 days ago in his bathroom and slipped and hit his right eye against the bathtub. He notes he came to the ED at the time. The patient's states the patient was clammy and limp today. She notes she noticed dark blood coming out from his wound. She states the patient's foot keeps changing colors. The patient denies passing out today. He states he has an appointment with the wound clinic on November 27. He notes his PCP currently is Dr. Herrera. Home Medications Home Medications Medication Instructions Recorded Confirmed Type atorvastatin 80 mg PO DAILY #30 05/09/16 11/22/18 History lisinopril 10 mg PO DAILY #90 05/09/16 11/22/18 History acetaminophen [Mapap 650 mg PO Q4H PRN #30 tab 11/23/18 Rx (acetaminophen)] insulin aspart U-100 [Novolog 1 unit SC Q6 #100 ml 11/23/18 Rx Flexpen U-100 Insulin] morphine 3 mg IV Q3H PRN #300 ml 11/23/18 Rx pantoprazole 40 mg PO DAILY #30 tab 11/23/18 Rx Allergies Allergy/AdvReac Type Severity Reaction Status Date / Time No Known Allergies Allergy Unverified 11/18/18 11:24 Past Med/Surg History Medical History Diabetes Syncope Family History Other Family history non-contributory Social History Preferred Language: Maori Communication Ability: Effective Beliefs That Will Affect Care: None Current Living Situation: Spouse Other Information That Helps Us Care for You: No Feels Safe at Home: Yes Smoking Status: Former smoker Second Hand Exposure: No ; Hx Alcohol Use: Yes Alcohol type: beer Hx Substance Use: No Review of Systems See HPI for pertinent positives & negatives. and A total of 10 systems reviewed and were otherwise negative Physical Exam Vital Signs Vital Signs - 24 hr 11/23/18 03:44 11/23/18 07:03 11/23/18 08:00 Temperature 36.7 C 36.6 C Temperature Source Oral Oral Pulse Rate 88 Pulse Rate [Left] 90 93 H Respiratory Rate 18 16 Blood Pressure [Left Arm] 126/76 152/90 H Blood Pressure Mean [Left Arm] 92 110 Blood Pressure Position [Left Arm] Lying Semi-fowlers Pulse Oximetry 97 96 Oxygen Delivery Method Room Air Room Air 11/23/18 11:22 Temperature 36.9 C Temperature Source Oral Pulse Rate Pulse Rate [Left] 89 Respiratory Rate 16 Blood Pressure [Left Arm] 146/88 H Blood Pressure Mean [Left Arm] 107 Blood Pressure Position [Left Arm] Lying Pulse Oximetry 96 Oxygen Delivery Method Room Air Vital signs reviewed. General: Well-appearing elderly male, in no significant distress. HEENT: No scleral icterus, PERRLA, neck supple. Atraumatic. Pale conjunctiva. Healing ecchymosis of the right periorbital region. Cardiovascular: Tachycardic rate and regular rhythm, no extra sounds. Pulmonary: Clear to auscultation bilaterally, normal work of breathing. Abdomen: Soft, nontender, nondistended, positive bowel sounds. Musculoskeletal: Ecchymosis of the right lateral distal right lower extremity. Blood filled vesicle over the lateral dorsum of the right foot. Warmth and erythema over the medial aspect of the right lower extremity/foot. Right greater than left lower extremity edema. Neurologic: Patient awake alert and oriented x 3. Skin: Warm, dry. See above. Course 1712: The patient was evaluated in room B4A, and a complete history and physical examination were performed. 4: I discussed the patient's case with Dr. Anastacia Tejeda. She will evaluate the patient for further management. 1927: I reevaluated the patient. I updated the patient about his admission and he agrees with the plan. Administered Medications Discontinued Medications Aspirin (Aspirin) 324 mg PO NOW STA Stop: 11/22/18 18:57 Last Admin: 11/22/18 19:12 Dose: 324 mg Documented by: [id number] Atorvastatin Calcium (Lipitor) 80 mg PO DAILY DAVID Stop: 12/23/18 08:59 Last Admin: 11/23/18 10:41 Dose: 80 mg Documented by: [id number] Sodium Chloride (Nss 1000ml) 1,000 mls @ 150 mls/hr IV .Q6H40M DAVID Stop: 12/22/18 17:29 Last Infusion: 11/22/18 20:27 Dose: 0 mls/hr Documented by: [id number] Admin: 11/22/18 18:02 Dose: 150 mls/hr Documented by: [id number] Sodium Chloride (Nss) 500 mls @ 999 mls/hr IV .Q31M DAVID Stop: 11/22/18 18:00 Last Infusion: 11/22/18 19:34 Dose: 0 mls/hr Documented by: [id number] Admin: 11/22/18 18:02 Dose: 999 mls/hr Documented by: [id number] Piperacillin Sod/Tazobactam Sod (Zosyn) 4.5 gm in 120 mls @ 240 mls/hr IV NOW ONE Stop: 11/22/18 19:49 Last Infusion: 11/22/18 20:27 Dose: 0 mls/hr Documented by: [id number] Admin: 11/22/18 19:38 Dose: 240 mls/hr Documented by: [id number] Vancomycin HCl 2,000 mg/ (Sodium Chloride) 540 mls @ 200 mls/hr IV NOW ONE Stop: 11/22/18 22:01 Last Infusion: 11/22/18 23:40 Dose: 0 mls/hr Documented by: [id number] Admin: 11/22/18 20:26 Dose: 200 mls/hr Documented by: [id number] Insulin Human Regular 10 units (/ Syringe) 0.1 mls @ 0.0033 mls/min SC NOW STA Stop: 11/22/18 19:22 Last Admin: 11/22/18 19:38 Dose: 0.0033 mls/min Documented by: [id number] Cosigned by: [id number] Lactated Ringer's (Lr) 1,000 mls @ 125 mls/hr IV .Q8H DAVID Stop: 12/22/18 22:10 Last Admin: 11/23/18 14:16 Dose: 125 mls/hr Documented by: [id number] Infusion: 11/23/18 14:16 Dose: 125 mls/hr Documented by: [id number] Admin: 11/23/18 08:06 Dose: 125 mls/hr Documented by: [id number] Infusion: 11/23/18 07:29 Dose: 125 mls/hr Documented by: [id number] Admin: 11/22/18 23:29 Dose: 125 mls/hr Documented by: [id number] Piperacillin Sod/Tazobactam (Sod 3.375 gm/ Dextrose) 115 mls @ 28.75 mls/hr IV Q8H DAVID; Protocol Stop: 12/03/18 01:59 Last Infusion: 11/23/18 14:40 Dose: 0 mls/hr Documented by: [id number] Admin: 11/23/18 10:40 Dose: 28.8 mls/hr Documented by: [id number] Infusion: 11/23/18 06:33 Dose: 0 mls/hr Documented by: [id number] Admin: 11/23/18 03:00 Dose: 28.8 mls/hr Documented by: [id number] Vancomycin HCl 1,000 mg/ (Sodium Chloride) 270 mls @ 125 mls/hr IV Q16H [facility] Stop: 12/02/18 13:59 Last Admin: 11/23/18 14:13 Dose: 125 mls/hr Documented by: [id number] Insulin Aspart (Novolog Flexpen) 0 units SC Q6 DAVID Stop: 12/23/18 00:00 Last Admin: 11/23/18 12:15 Dose: 1 units Documented by: [id number] Cosigned by: [id number] Admin: 11/23/18 06:34 Dose: 3 units Documented by: [id number] Cosigned by: [id number] Admin: 11/23/18 00:00 Dose: Not Given Documented by: [id number] Cosigned by: [id number] Insulin Human Regular (Novolin R U-100 Per Unit) Confirm Administered Dose 1 units .ROUTE .[facility] Stop: 11/22/18 19:36 Last Admin: 11/22/18 19:45 Dose: Not Given Documented by: [id number] Morphine Sulfate (Morphine Sulfate) 3 mg IV NOW STA Stop: 11/23/18 07:59 Last Admin: 11/23/18 08:05 Dose: 3 mg Documented by: [id number] Morphine Sulfate (Morphine Sulfate) 3 mg IV NOW STA Stop: 11/23/18 12:00 Last Admin: 11/23/18 12:17 Dose: 3 mg Documented by: [id number] Pantoprazole Sodium (Protonix) 40 mg PO DAILY DAVID Stop: 12/23/18 08:59 Last Admin: 11/23/18 10:41 Dose: 40 mg Documented by: [id number] Medical Decision Making Differential Diagnosis Differential Diagnosis includes but is not limited to dehydration, stroke, anemia, hypoglycemia, hyponatremia, hypernatremia, urinary tract infection, pneumonia, bronchitis, sepsis, gastroenteritis, additional abdominal pathology, metabolic abnormalities and infections. Medical Records Attestation: I reviewed the patient's medical records. Home Medications Current Medication List: was personally reviewed by me Laboratory Data Attestation: I reviewed the patient's lab results. Result diagrams: 11/23/18 06:03 11/23/18 06:03 Lab Results 11/22/18 11/22/18 11/22/18 Range/Units 17:53 17:53 17:53 WBC 6.57 (4.8-10.8) K/uL RBC 3.79 L (4.7-6.1) M/uL Hgb 12.1 L (14.0-18.0) g/dL Hct 35.3 L (42-52) % MCV 93.1 (80-100) fL MCH 31.9 (25-34) pg MCHC 34.3 (32-36) g/dL RDW Std Deviation 44.6 (36.4-46.3) fL RDW Coeff of Tamra 13.1 (11.5-14.5) % Plt Count 177 (130-400) K/uL MPV 10.3 (7.4-10.4) fL Immature Gran % (Auto) 0.2 % Neut % (Auto) 71.7 % Lymph % (Auto) 15.5 % Mills % (Auto) 12.2 % Eos % (Auto) 0.2 % Baso % (Auto) 0.2 % Immature Gran # (Auto) 0.01 (0.00-0.02) K/uL Neut # (Auto) 4.72 (1.4-6.5) K/uL Lymph # (Auto) 1.02 L (1.2-3.4) K/uL Mills # (Auto) 0.80 H (0.11-0.59) K/uL Eos # (Auto) 0.01 (0-0.5) K/uL Baso # (Auto) 0.01 (0-0.2) K/uL ESR (0-14) mm/hr Sodium 136 (136-145) mmol/L Potassium 4.9 (3.5-5.1) mmol/L Chloride 103 (98-107) mmol/L Carbon Dioxide 25 (21-32) mmol/L Anion Gap 8.0 (3-11) BUN 41 H (7-18) mg/dl Creatinine 1.65 H (0.6-1.4) mg/dl Est Cr Clr Drug Dosing 46.1 ml/min Est GFR ( Amer) 49.7 Est GFR (Non-Af Amer) 42.9 BUN/Creatinine Ratio 24.6 H (10-20) Glucose 319 H* (70-99) mg/dl POC Glucose (70-99) Lactate 2.9 H* (0.4-2.0) mmol/L Calcium 8.4 L (8.5-10.1) mg/dl Magnesium 2.1 (1.8-2.4) mg/dl Total Bilirubin 0.5 (0.2-1) mg/dl AST 8 L (15-37) U/L ALT 15 (12-78) U/L Alkaline Phosphatase 67 (45-117) U/L Total Creatine Kinase 64 (39-308) U/L Troponin I 0.103 H* (0-0.045) ng/ml C-Reactive Protein (0-0.29) mg/dl Total Protein 7.2 (6.4-8.2) gm/dl Albumin 3.2 L (3.4-5.0) gm/dl Globulin 4.0 (2.5-4.0) gm/dl Albumin/Globulin Ratio 0.8 L (0.9-2) Beta-Hydroxybutyric Acd 1.06 (0.2-2.81) mg/dl TSH 1.550 (0.300-4.500) uIu/ml Bld Cult Staph aureus PCR (Negative) Blood Culture MRSA PCR (Negative) 11/22/18 11/22/18 11/22/18 Range/Units 17:53 20:22 23:34 WBC (4.8-10.8) K/uL RBC (4.7-6.1) M/uL Hgb (14.0-18.0) g/dL Hct (42-52) % MCV (80-100) fL MCH (25-34) pg MCHC (32-36) g/dL RDW Std Deviation (36.4-46.3) fL RDW Coeff of Tamra (11.5-14.5) % Plt Count (130-400) K/uL MPV (7.4-10.4) fL Immature Gran % (Auto) % Neut % (Auto) % Lymph % (Auto) % Mills % (Auto) % Eos % (Auto) % Baso % (Auto) % Immature Gran # (Auto) (0.00-0.02) K/uL Neut # (Auto) (1.4-6.5) K/uL Lymph # (Auto) (1.2-3.4) K/uL Mills # (Auto) (0.11-0.59) K/uL Eos # (Auto) (0-0.5) K/uL Baso # (Auto) (0-0.2) K/uL ESR (0-14) mm/hr Sodium (136-145) mmol/L Potassium (3.5-5.1) mmol/L Chloride (98-107) mmol/L Carbon Dioxide (21-32) mmol/L Anion Gap (3-11) BUN (7-18) mg/dl Creatinine (0.6-1.4) mg/dl Est Cr Clr Drug Dosing ml/min Est GFR ( Amer) Est GFR (Non-Af Amer) BUN/Creatinine Ratio (10-20) Glucose (70-99) mg/dl POC Glucose 234 H (70-99) Lactate (0.4-2.0) mmol/L Calcium (8.5-10.1) mg/dl Magnesium (1.8-2.4) mg/dl Total Bilirubin (0.2-1) mg/dl AST (15-37) U/L ALT (12-78) U/L Alkaline Phosphatase (45-117) U/L Total Creatine Kinase (39-308) U/L Troponin I 0.343 H* (0-0.045) ng/ml C-Reactive Protein (0-0.29) mg/dl Total Protein (6.4-8.2) gm/dl Albumin (3.4-5.0) gm/dl Globulin (2.5-4.0) gm/dl Albumin/Globulin Ratio (0.9-2) Beta-Hydroxybutyric Acd (0.2-2.81) mg/dl TSH (0.300-4.500) uIu/ml Bld Cult Staph aureus PCR Negative (Negative) Blood Culture MRSA PCR Negative (Negative) 11/22/18 11/23/18 11/23/18 Range/Units 23:56 00:12 06:03 WBC 5.80 (4.8-10.8) K/uL RBC 3.33 L (4.7-6.1) M/uL Hgb 10.4 L (14.0-18.0) g/dL Hct 30.9 L (42-52) % MCV 92.8 (80-100) fL MCH 31.2 (25-34) pg MCHC 33.7 (32-36) g/dL RDW Std Deviation 44.4 (36.4-46.3) fL RDW Coeff of Tamra 13.1 (11.5-14.5) % Plt Count 161 (130-400) K/uL MPV 10.0 (7.4-10.4) fL Immature Gran % (Auto) 0.2 % Neut % (Auto) 65.0 % Lymph % (Auto) 24.1 % Mills % (Auto) 10.2 % Eos % (Auto) 0.5 % Baso % (Auto) 0.0 % Immature Gran # (Auto) 0.01 (0.00-0.02) K/uL Neut # (Auto) 3.77 (1.4-6.5) K/uL Lymph # (Auto) 1.40 (1.2-3.4) K/uL Mills # (Auto) 0.59 (0.11-0.59) K/uL Eos # (Auto) 0.03 (0-0.5) K/uL Baso # (Auto) 0.00 (0-0.2) K/uL ESR (0-14) mm/hr Sodium (136-145) mmol/L Potassium (3.5-5.1) mmol/L Chloride (98-107) mmol/L Carbon Dioxide (21-32) mmol/L Anion Gap (3-11) BUN (7-18) mg/dl Creatinine (0.6-1.4) mg/dl Est Cr Clr Drug Dosing ml/min Est GFR ( Amer) Est GFR (Non-Af Amer) BUN/Creatinine Ratio (10-20) Glucose (70-99) mg/dl POC Glucose 77 99 (70-99) Lactate (0.4-2.0) mmol/L Calcium (8.5-10.1) mg/dl Magnesium (1.8-2.4) mg/dl Total Bilirubin (0.2-1) mg/dl AST (15-37) U/L ALT (12-78) U/L Alkaline Phosphatase (45-117) U/L Total Creatine Kinase (39-308) U/L Troponin I (0-0.045) ng/ml C-Reactive Protein (0-0.29) mg/dl Total Protein (6.4-8.2) gm/dl Albumin (3.4-5.0) gm/dl Globulin (2.5-4.0) gm/dl Albumin/Globulin Ratio (0.9-2) Beta-Hydroxybutyric Acd (0.2-2.81) mg/dl TSH (0.300-4.500) uIu/ml Bld Cult Staph aureus PCR (Negative) Blood Culture MRSA PCR (Negative) 11/23/18 11/23/18 11/23/18 Range/Units 06:03 06:03 06:03 WBC (4.8-10.8) K/uL RBC (4.7-6.1) M/uL Hgb (14.0-18.0) g/dL Hct (42-52) % MCV (80-100) fL MCH (25-34) pg MCHC (32-36) g/dL RDW Std Deviation (36.4-46.3) fL RDW Coeff of Tamra (11.5-14.5) % Plt Count (130-400) K/uL MPV (7.4-10.4) fL Immature Gran % (Auto) % Neut % (Auto) % Lymph % (Auto) % Mills % (Auto) % Eos % (Auto) % Baso % (Auto) % Immature Gran # (Auto) (0.00-0.02) K/uL Neut # (Auto) (1.4-6.5) K/uL Lymph # (Auto) (1.2-3.4) K/uL Mills # (Auto) (0.11-0.59) K/uL Eos # (Auto) (0-0.5) K/uL Baso # (Auto) (0-0.2) K/uL ESR 49 H (0-14) mm/hr Sodium 141 (136-145) mmol/L Potassium 4.6 (3.5-5.1) mmol/L Chloride 108 H (98-107) mmol/L Carbon Dioxide 27 (21-32) mmol/L Anion Gap 5.0 (3-11) BUN 34 H (7-18) mg/dl Creatinine 1.30 D (0.6-1.4) mg/dl Est Cr Clr Drug Dosing 55.9 ml/min Est GFR ( Amer) 66.4 Est GFR (Non-Af Amer) 57.3 BUN/Creatinine Ratio 26.1 H (10-20) Glucose 190 H (70-99) mg/dl POC Glucose (70-99) Lactate (0.4-2.0) mmol/L Calcium 8.3 L (8.5-10.1) mg/dl Magnesium (1.8-2.4) mg/dl Total Bilirubin (0.2-1) mg/dl AST (15-37) U/L ALT (12-78) U/L Alkaline Phosphatase (45-117) U/L Total Creatine Kinase (39-308) U/L Troponin I 0.407 H* Cancelled (0-0.045) ng/ml C-Reactive Protein 6.27 H Cancelled (0-0.29) mg/dl Total Protein (6.4-8.2) gm/dl Albumin (3.4-5.0) gm/dl Globulin (2.5-4.0) gm/dl Albumin/Globulin Ratio (0.9-2) Beta-Hydroxybutyric Acd (0.2-2.81) mg/dl TSH (0.300-4.500) uIu/ml Bld Cult Staph aureus PCR (Negative) Blood Culture MRSA PCR (Negative) 11/23/18 11/23/18 11/23/18 Range/Units 06:06 11:35 11:43 WBC (4.8-10.8) K/uL RBC (4.7-6.1) M/uL Hgb (14.0-18.0) g/dL Hct (42-52) % MCV (80-100) fL MCH (25-34) pg MCHC (32-36) g/dL RDW Std Deviation (36.4-46.3) fL RDW Coeff of Tamra (11.5-14.5) % Plt Count (130-400) K/uL MPV (7.4-10.4) fL Immature Gran % (Auto) % Neut % (Auto) % Lymph % (Auto) % Mills % (Auto) % Eos % (Auto) % Baso % (Auto) % Immature Gran # (Auto) (0.00-0.02) K/uL Neut # (Auto) (1.4-6.5) K/uL Lymph # (Auto) (1.2-3.4) K/uL Mills # (Auto) (0.11-0.59) K/uL Eos # (Auto) (0-0.5) K/uL Baso # (Auto) (0-0.2) K/uL ESR (0-14) mm/hr Sodium (136-145) mmol/L Potassium (3.5-5.1) mmol/L Chloride (98-107) mmol/L Carbon Dioxide (21-32) mmol/L Anion Gap (3-11) BUN (7-18) mg/dl Creatinine (0.6-1.4) mg/dl Est Cr Clr Drug Dosing ml/min Est GFR ( Amer) Est GFR (Non-Af Amer) BUN/Creatinine Ratio (10-20) Glucose (70-99) mg/dl POC Glucose 193 H 168 H (70-99) Lactate (0.4-2.0) mmol/L Calcium (8.5-10.1) mg/dl Magnesium (1.8-2.4) mg/dl Total Bilirubin (0.2-1) mg/dl AST (15-37) U/L ALT (12-78) U/L Alkaline Phosphatase (45-117) U/L Total Creatine Kinase (39-308) U/L Troponin I 0.342 H* (0-0.045) ng/ml C-Reactive Protein (0-0.29) mg/dl Total Protein (6.4-8.2) gm/dl Albumin (3.4-5.0) gm/dl Globulin (2.5-4.0) gm/dl Albumin/Globulin Ratio (0.9-2) Beta-Hydroxybutyric Acd (0.2-2.81) mg/dl TSH (0.300-4.500) uIu/ml Bld Cult Staph aureus PCR (Negative) Blood Culture MRSA PCR (Negative) Imaging Data Radiologist's Impression: Radiology results as stated below per my review and the radiologist's interpretation: XR chest 1V portable CLINICAL HISTORY: 63 years-old Male presenting with weakness and fever. TECHNIQUE: Portable upright AP view of the chest was obtained. COMPARISON: 11/18/2018. FINDINGS: Cardiomediastinal silhouette normal. No focal opacity. No large effusion or pneumothorax. Degenerative changes of the thoracic spine. Upper abdomen normal. IMPRESSION: 1. No acute cardiopulmonary disease. Electronically signed by: Jaime Anderson M.D. 11/22/2018 5:42 PM ECG Data Attestation: I personally reviewed and interpreted this ECG as follows: Indication: tachycardia Rate (beats per minute): 104 Rhythm: sinus tachycardia Findings: + other (QTc is 460); no acute ischemic change and no ectopy Blood Pressure Blood Pressure Findings: Elevated blood pressure Blood Pressure Disposition: further management by hospitalist JORGE A Muller This patient was evaluated and appeared to be in no distress. Physical examination reveals somewhat ill-appearing male who is slightly tachycardic. Right lower extremity reveals a large amount of subcutaneous hematoma and secondary erythematous change/warmth. Laboratory work reveals a normal WBC, elevated lactate at 2.9 with a troponin of 0.1. Patient was given aspirin 324 mg p.o. Patient does have hyperglycemia. He was given 10 units of subcutaneous regular insulin for a glucose of 319. Patient was hydrated with normal saline solution, blood cultures are pending. IV Zosyn and vancomycin were administered. I have suspicious of an infected hematoma with secondary cellulitis. Patient's case was discussed with Dr. Tejeda of the hospitalist service. She has agreed to evaluate the patient for further management. Patient is aware of the plan and agrees. Impression & Plan Infection of wound hematoma, Cellulitis of leg, right, Hyperglycemia, Renal insufficiency, Elevated troponin Critical Care Time Critical Care Time: Yes Total Critical Care Time: 30 I have personally spent greater than 31 minutes of critical care time in the direct management of this patient. This includes bedside care, interpretation of diagnostic studies, and testing, discussion with consultants, patient, and family members, and other required patient management activities. This 31 minutes is in excess of all separately billable procedures. Discharge Plan Visit Data *Final* Discharge Date/Time: 11/22/18 21:39 Chief Complaint: Leg Injury/Pain Stated Complaint: LEG INJURY, BEAM FELL ON LEG ED Provider: Alyssa Matt Discharge Problem: Infection of wound hematoma, Cellulitis of leg, right, Hyperglycemia, Renal insufficiency, Elevated troponin Patient Disposition: Admitted As Inpatient Discharge Instructions Interventions: ED Discharge Assessment Last Done: 11/22/18 21:39 The scribe's documentation has been prepared under my direction and personally reviewed by me in its entirety. I confirm that the note above accurately reflects all work, treatment, procedures, and medical decision making performed by me.
[2018-11-23] MEDS: PIPERACILLIN/TAZOBACTAM 3.375 GM in DEXTROSE 5% 100 ML IV SCH ×2 (03:00→10:40)
[2018-11-23 06:22] LABS: Eosinophils # (auto) 0.03 K/uL (0-0.5); Eosinophils % (auto) 0.5 %; Hematocrit (blood only) 30.9 % (42-52); Hemoglobin 10.4 g/dL (14.0-18.0); Immature Granulocytes # (auto) 0.01 K/uL (0.00-0.02); Immature Granulocytes % (auto) 0.2 %; Lymphocytes % (auto) 24.1 %; Mean Corpuscular Hemoglobin 31.2 pg (25-34); Mean Corpuscular Hgb Conc 33.7 g/dL (32-36); Mean Corpuscular Volume 92.8 fL (80-100); Monocytes # (auto) 0.59 K/uL (0.11-0.59); Monocytes % (auto) 10.2 %; Neutrophils # (auto) 3.77 K/uL (1.4-6.5); Platelet Count 161 K/uL (130-400); RDW Coefficient of Variation 13.1 % (11.5-14.5); RDW Standard Deviation 44.4 fL (36.4-46.3); Red Blood Count 3.33 M/uL (4.7-6.1)
[2018-11-23] MEDS: INSULIN ASPART 100 UNITS/ML 3 ML PEN SC SCH ×3 (06:34→12:15)
[2018-11-23 06:54] LABS: BUN Creatinine Ratio 26.1 (10-20); Calcium 8.3 mg/dl (8.5-10.1); Creatinine Clr Calc Pharmacy 55.9 ml/min; Est GFR (African American) 66.4; Est GFR (Non-African American) 57.3; Potassium 4.6 mmol/L (3.5-5.1)
[2018-11-23 07:01] LABS: C Reactive Protein 6.27 mg/dl (0-0.29); Troponin I 0.407 ng/ml (0-0.045)
[2018-11-23] MEDS ORDERED: MoRPHine SULFATE 4 MG/ML 1 ML CARP\\VIAL IV STA ×2 (07:58→11:59)
[2018-11-23] MEDS: LACTATED RINGER'S 1,000 ML IV SCH ×2 (08:06→14:16)
[2018-11-23] MEDS ORDERED: ATORVASTATIN 40 MG TAB PO SCH (09:00)
[2018-11-23] MEDS ORDERED: PANTOprazole 40 MG TAB PO SCH (09:00)
--- NOTE | 2018-11-23 10:00 | Pharmacy Report ---
Pharmacy Abx Dose Short Note - Date of Service November 23, 2018 - Assessment & Plan Assessment 63 year old M receiving IV Vancomycin and Zosyn for treatment of R leg cellulitis Day # 1 of antimicrobial therapy. * Patient received a higher loading dose of Vancomycin (2000mg ~29m/kg) than usual due to inaccurate weight recorded in the ED. Therefore, will delay next dose to account for this. Renal function improved since admission. sCr = 1.3 mg/dL with estimated CrCl ~56 mL/min. Estimated pharmacokinetic parameters: * Ke ~0.051/hr, T1/2 ~13.6 hrs Plan Vancomycin * Initiate Vancomycin 1000mg (~14 mg/kg) IV q16 * Goal trough level for cellulitis : ~15 mcg/mL * Trough level ordered for: 11/25/18 @ 1330 (prior to 4th dose and therefore should be reflective of steady state) Zosyn * Continue Zosyn 3.375g IV q8 (extended infusion over 4 hours) for CrCl >20 mL/min Pharmacy will continue to follow and will adjust dose/frequency as necessary. Thank you.
--- NOTE | 2018-11-23 11:48 | Consultation Report ---
DATE OF CONSULTATION: 11/23/2018 CHIEF COMPLAINT: Necrotic wound to the right lower extremity. HISTORY OF PRESENT ILLNESS: Mr. Batista is a 63-year-old gentleman who was admitted yesterday to the internal medicine service. His history is that he had an approximately 200-300 pound set of three 2 x 10s fall on to his right lower leg 2 weeks ago. He was seen at an outside hospital and had x-rays done that were negative. On 11/18/2018, five days prior to his presentation here, he passed out at home and hit his eye in the bathtub. He then had this suture repaired and was noted to have necrotic wound developing on his right lower extremity and was told to follow up in the wound clinic. His pain worsen the point where he is having difficulty bearing weight on the right lower extremity and noted his blood sugars were very high at home up to 400. Therefore, presented to the Emergency Room yesterday, was admitted and Orthopedics was consulted regarding his right lower extremity. The patient was seen and examined on the floor. He reports the pain is the worst on the lateral aspect of the ankle. He has no knee pain. He denies any numbness or tingling. He is getting morphine here and reports that this is helping. PAST MEDICAL HISTORY: Reviewed in the chart. PAST SURGICAL HISTORY: Reviewed in the chart. SOCIAL HISTORY: Reviewed in the chart. FAMILY HISTORY: Reviewed in the chart. MEDICATIONS: Reviewed in the chart. ALLERGIES: Reviewed in the chart. REVIEW OF SYSTEMS: Reviewed in the chart. PHYSICAL EXAMINATION: GENERAL: He is a pleasant male, alert and oriented x3 and communicative, sitting in bed in no apparent distress. Breathing is nonlabored. EXTREMITIES: Right lower extremity: The skin shows a large area of necrosis starting at the mid lower leg and extending to the level of the ankle joint. It is approximately 12 inches long and 2 inches in maximum width. The overlying epidermis starting to slough off and there is some hematoma that is coming out through the wound. He has a small blister noted in the lateral aspect of his heel which has not popped but appears to be filled with blood. The surrounding skin does not appear to be compromised here as it is of normal coloration without erythema. He is able to wiggle his toes and move his ankle up and down. He tolerates passive flexion and extension of his toes and ankle without difficulty. Sensory intact to light touch throughout the entirety of the foot. Toes are warm and well perfused. RESULTS REVIEWED: X-rays that were done of the foot and ankle as well as the tib-fib are reviewed. These demonstrate extensive lateral subcutaneous edema of the mid and lower leg. There are no fractures noted. No x-ray evidence of osteomyelitis. There is no gas in the soft tissues. He did have a vascular ultrasound that was performed yesterday as well that showed a fluid collection in the area of his hematoma seen on exam. IMPRESSION: A 63-year-old male with diabetes, coronary artery disease, hypertension, hyperlipidemia and acute kidney injury with necrotic skin wound over the right lower extremity and infected wound hematoma. PLAN: I reviewed the diagnosis with the patient. I do think this is going to need surgery. However, he is likely to need a large area of debridement and potentially additional procedure such as skin grafting and potentially even muscle flap to cover the bone depending on how extensive his debridement is. This is outside of my area of expertise and therefore I recommended transfer to a level 1 trauma center. I spoke with the orthopedic surgeon bonderite operator at [facility] in [place]. They agreed to manage this patient. However, the patient is on internal medicine service and therefore we will get him transferred to an internal medical service at [place].
[2018-11-23] MEDS ORDERED: VANCOMYCIN HCL 1,000 MG in SODIUM CHLORIDE 0.9% 250 ML IV SCH (14:00)
--- NOTE | 2018-11-23 22:37 | Progress Note ---
Date of Service November 23, 2018 Subjective I was informed by the lab that patient had positive blood cultures that grew after he was transferred to [place]. 03/26 bottles drawn on 11/22 at 17:53 positive for GPC clusters Not staphylococcus aureus or MRSA Assessment/Plan: -Blood cultures possibly contamination -Notified patient's nurse at [place] of positive culture Results & Data Vital Signs (Past 12 Hours) Vital Signs Temp Pulse Resp BP Pulse Ox 11/23/18 14:00 36.9 C 89 16 146/88 H 96 11/23/18 11:22 36.9 C 89 16 146/88 H 96 PG Care Time/CCT Total # of Minutes Spent Total Time Spent with Patient: Total time spent is greater than 50% in coordination of care (as documented) at patient's floor/unit and/or counseling patient:
[2018-11-25] MEDS ORDERED: VANCOMYCIN TROUGH ONE (13:30)
--- NOTE | 2018-12-02 07:20 | Discharge Summary ---
Date of Service November 23, 2018 Admission HPI Per Admitting Provider 63-year-old male with history of diabetes mellitus, hypertension, hyperlipidemia, GERD presents with worsening right lower extremity wound and weakness x 5 days. Patient reports he was staring down garage door when beam fell and hit right lateral vargas, ankle and foot 2 weeks ago. He went to [facility] where he had x-rays done and was told to elevate and take Tylenol. On Saturday the , 5 days ago he came to [facility] ED after he passed out and hit his right eye on bathtub. He reports at the time he was going upstairs to use the bathroom and felt very clammy and weak and he must of passed out. His eyelid was repaired and he was told to follow-up with wound clinic which is scheduled for Saturday. He returns today due to worsening right lower extremity redness, bleeding and extreme swelling especially when he stands. He also feels weak and clammy every time he walks. Reports blood sugars have also been high was 400 today. He checks blood sugar once a month usually and his recent A1c was 3 months ago and believes it was 7. Found to have tachycardia and elevated lactate in the ED. Was given Vanco and Zosyn for concern of infection as well as IV fluids. He also had a mild bump in his troponin for which she was given aspirin 324 mg x 1. Patient's BUN and creatinine also elevated. Past surgical history: Bilateral rotator cuff repair and bicep tendon repair Social history: Chews tobacco 1 can since age 10, quit smoking 15 to 20 years ago but smoked for about 25 to 30 years half pack per day, very rare alcohol use and denies occasional drug use Family history: Father had bypass and pacemaker at age 65, mother of car accident, 2 children also have diabetes Principal Diagnosis skin necrosis of right lower leg from trauma Discharge Exam On physical exam he is afebrile, General: Awake alert and oriented, no acute distress Skin: Lateral portion of right vargas with large area of ecchymosis, small blood- filled bulla present on lateral portion of foot, dorsum of foot red, swollen, tender. No crepitus or lymphangitic streaks. Weakly palpable pulse. HEENT: Normocephalic, atraumatic pupils equal round and reactive to light, moist mucous membranes, neck supple Heart: S1-S2 present, regular, tachycardic Lungs: CTA Abdomen: Soft, nontender/nondistended Extremities: As above Discharge Data Allergies Allergy/AdvReac Type Severity Reaction Status Date / Time No Known Allergies Allergy Unverified 11/18/18 11:24 Consultations 11/22/18 19:23 ED Decision to Admit Stat 11/22/18 22:11 Consult Orthopedic Surgery Routine Ordered Studies 11/22/18 20:38 US venous doppler LE RT Stat 11/22/18 21:24 US extremity non-vascular ltd Stat Hospital Course (1) Infection of wound hematoma: (2) Cellulitis of leg, right: 63-year-old male with history of diabetes mellitus, hypertension, hyperlipidemia, GERD presents with worsening right lower extremity wound and weakness x 5 days. Right lower extremity wound concern for cellulitis and hematoma Afebrile, tachycardic, no WBC elevation Lactate 2.9 X-ray foot, ankle, tib-fib: No fracture, no emphysema possible abscess and significant soft tissue edema Ultrasound Doppler right lower extremity to rule out DVT Ultrasound ST right lower extremity to rule out abscess Received Dinora and Kassi in the ED, continued On IV fluids Ortho consulted for possible I&D Later on the hospital stay, Ortho evaluated patient and recommended transfer to a tertiary center. Input from ortho below: He is likely to need a large area of debridement and potentially additional procedure such as skin grafting and potentially even muscle flap to cover the bone depending on how extensive his debridement is. This is outside of my area of expertise and therefore I recommended transfer to a level 1 trauma center. I spoke with the orthopedic surgeon decay control operator at [facility] in [place]. They agreed to manage this patient. However, the patient is on internal medicine service and therefore we will get him transferred to an internal medical service at [place]. I discussed case with Medicine at [place]. Patient will be transferred via ambulance.. History of DM 2: Hyperglycemia BSG 319 in the ED Beta hydroxybutyrate 1.06, normal Hold home medications BSG per unit protocol, SSI Elevated troponin No chest pain or shortness of breath Troponin 0.103 Peaked at 0.4 Monitor on telemetry JASON No history of CKD, previous BUN/creatinine 2014 normal Patient appears hypovolemic and reports not drinking enough water BUN/creatinine 41/1.65 Received 500 cc normal saline +150/h in the ED On IV fluids LR 125 cc/h Continue to monitor BMP History of hypertension, hyperlipidemia Continue home atorvastatin Hold lisinopril in the setting of JASON Patient normotensive at this time PRN antihypertensive as needed FEN/GI: LR at 125 cc/h, n.p.o. for possible procedure Code: Full DVT prophylaxis: Contraindicated the setting of right lower extremity hematoma/bleeding and no SCD either Disposition: Telemetry Total Time Total Time Spent Total Time Spent (In Minutes): 42 Total Time Includes: Examination of the Patient, Discharge Planning and Medication Reconciliation Discharge Plan Discharge Items Patient Disposition: Transfer [facility] Reason For Visit: RLE INFECTION/WOUND,WEAKNESS Discharge Diagnosis: Right lower leg infection Discharge Goals: Decrease discomfort Activity: Resume your previous activity Non-emergency contact: Primary Care Provider Call non-emergency contact if: you have any medication questions Follow-up/Referrals: Barbara Herrera DO [Primary Care Provider] - Diet: See below Diet Comment: NPO Addtl Provider Instructions: ZOSYN 4.5 gram IV Q8H Next dose at 16:00 Vancomycin 1 gr IV at q16h 14:00 Monitor troponin. Prescriptions: New acetaminophen [Mapap (acetaminophen)] 325 mg Tablet 650 mg PO Q4H PRN (Reason: pain) Qty: 30 RF: 0 pantoprazole 40 mg Tablet,Delayed Release (Dr/Ec) 40 mg PO DAILY Qty: 30 RF: 0 Novolog Flexpen U-100 Insulin 100 unit/mL (3 mL) Insulin Pen 1 unit SC Q6 Qty: 100 RF: 0 morphine 30 mg/30 mL (1 mg/mL) pt controlled analgesia syring 3 mg IV Q3H PRN (Reason: pain) Qty: 300 RF: 0 Continued atorvastatin 80 mg Tablet 80 mg PO DAILY Qty: 30 RF: 0 lisinopril 10 mg Tablet 10 mg PO DAILY Qty: 90 RF: 0 Discontinued glimepiride 1 mg Tablet 2 mg PO QAM Qty: 90 RF: 0 metformin 1,000 mg Tablet 1,000 mg PO BID Qty: 90 RF: 0 glimepiride 1 mg tablet 1 mg PO QPM RF: 0 omeprazole 20 mg tablet,delayed release (DR/EC) 20 mg PO DAILY RF: 0 Tradjenta 5 mg tablet 5 mg PO DAILY RF: 0 Stand-Alone Forms: [facility] Discharge Orders: Discharge Order (Routine); Ordered 11/23/18 Ordered By: Jb Shaikh Admission Data Admit Date/Time: 11/23/18 12:00 Attending Provider: Jb Shaikh Admit Provider: Anastacia Tejeda Primary Care Provider: Barbara Herrera Other Providers: Anastacia Tejeda ; Jaime Navarro Service: Telemetry Other Interventions: Discharge Summary Assessment (RN) Last Done: 11/23/18 14:00 DC Date/Time DO NOT enter until pt leaves facility: 11/23/18 14:30
== END 2018-11-23 14:30 | disposition short-term general hospital (02) | DRG 603 ==
LOC: ED 16:47 → 2E 16:47 → SUATTDRO 20:47 → 2E 21:39
DX: N17.9 Acute kidney failure, unspecified; L03.115 Cellulitis of right lower limb; I25.10 Atherosclerotic heart disease of native coronary artery without angina pectoris; Z79.84 Long term (current) use of oral hypoglycemic drugs; K21.9 Gastro-esophageal reflux disease without esophagitis; E78.5 Hyperlipidemia, unspecified; I10 Essential (primary) hypertension; E11.65 Type 2 diabetes mellitus with hyperglycemia